=== PATIENT | male | born 1945 | race Two or more races ===

== ENCOUNTER 2022-03-24 18:15 | Inpatient (IN) | payer MEDICARE, OTHER ==
[~2022-03-24] VITALS: Ht 152.4 cm; Wt 37.6 kg
[2022-03-24] MEDS ORDERED: IV NS 0.9% 1,000 ML BAG IV ONE (18:30)
--- NOTE | 2022-03-24 18:45 | NUR ---
[id number] from home, c/o generalizded weakness and confusion x 2 days. On room air, breathing normally and unlabored. Connected to the monitor and pulse ox. Kept comfortable, rex continue to monitor accordingly.
--- NOTE | 2022-03-24 19:00 | NUR ---
urine collected and sent to lab.
--- NOTE | 2022-03-24 19:07 | NUR ---
covid swab collected and sent to lab.
[2022-03-24] MEDS ORDERED: AMLO-213 PO (19:18)
[2022-03-24] MEDS ORDERED: DONE5TAB7 PO (19:18)
[2022-03-24] MEDS ORDERED: BENA20TA9 PO (19:18)
[2022-03-24] MEDS ORDERED: ESCI5TAB PO (19:18)
[2022-03-24] MEDS ORDERED: DONE10TA44 PO (19:18)
[2022-03-24] MEDS ORDERED: FURO20TA4 PO (19:18)
[2022-03-24] MEDS ORDERED: DUTA0.5C37 PO (19:18)
[2022-03-24] MEDS ORDERED: TEMA15CA5 PO (19:30)
[2022-03-24] MEDS ORDERED: ASPI-1169 PO (19:30)
[2022-03-24] MEDS ORDERED: QUET25TA PO (19:30)
[2022-03-24] MEDS ORDERED: POTA10TA10 PO (19:30)
[2022-03-24] MEDS ORDERED: IBUP-1957 PO (19:30)
[2022-03-24] MEDS ORDERED: ROSU5TAB13 PO (19:30)
[2022-03-24] MEDS ORDERED: LORA-259 PO (19:30)
[2022-03-24] MEDS ORDERED: MECL-159 PO (19:30)
[2022-03-24 19:56] LABS: BASOPHILS # (AUTO) 0.1 K/uL (0.0-0.2); BASOPHILS % (AUTO) 0.8 % (0.0-2.0); EOSINOPHILS % (AUTO) 2.5 % (0.0-6.0); HEMATOCRIT 35 % (39-51); HEMOGLOBIN 12.1 g/dL (13.5-17.5); LYMPHOCYTES # (AUTO) 1.6 K/uL (0.8-4.8); LYMPHOCYTES % (AUTO) 23.6 % (20.0-44.0); MEAN CORPUSCULAR HGB CONC 34 g/dl (31.0-36.0); MEAN CORPUSCULAR VOLUME 89 fL (80-96); MONOCYTES # (AUTO) 0.6 K/uL (0.1-1.30); MONOCYTES % (AUTO) 9.2 % (2.0-12.0); NEUTROPHILS # (AUTO) 4.4 K/uL (1.8-8.9); NEUTROPHILS % (AUTO) 63.9 % (43.0-81.0); PLATELET COUNT (AUTO) 168 K/uL (150-450); RED BLOOD CELL COUNT(AUTO) 3.99 MIL/uL (4.5-6.0); WHITE BLOOD COUNT (AUTO) 6.9 K/uL (4.3-11.0)
[2022-03-24 19:57] LABS: CALCIUM, SERUM 8.2 mg/dL (8.5-10.1); CARBON DIOXIDE 26 mmol/L (21-32); CHLORIDE 107 mmol/L (98-107); CREATININE 0.9 mg/dL (0.6-1.3); GLUCOSE 141 mg/dL (74-106); SODIUM SERUM 141 mmol/L (136-145); UREA NITROGEN, BLOOD 19 mg/dL (7-18)
[2022-03-24 20:03] LABS: BILIRUBIN,URINE SMALL (NEGATIVE); COLOR,URINE YELLOW (YELLOW); LEUKOCYTE ESTERASE ,URINE NEGATIVE (NEGATIVE); NITRITE, URINE NEGATIVE (NEGATIVE); PROTEIN,URINE 30 mg/dl (NEGATIVE); UGLUCOSE NEGATIVE (NEGATIVE)
[2022-03-24 20:05] LABS: ALANINE AMINOTRANSFERASE 15 U/L (12-78); ALBUMIN 3.1 g/dL (3.4-5.0); ALKALINE PHOSPHATASE 65 U/L (46-116); ASPARTATE AMINOTRANSFERASE 13 U/L (15-37); BILIRUBIN,DIRECT 0.1 mg/dL (0.0-0.2); BILIRUBIN,TOTAL 0.2 mg/dL (0.2-1.0); TOTAL PROTEIN, SERUM 6.5 g/dL (6.4-8.2)
[2022-03-24 21:14] LABS: BACTERIA,URINE None seen /HPF (None Seen); MUCUS,URINE Many /LPF (None Seen); RBC,URINE 0-2 /HPF (0-2); SQUAMOUS EPITHELIAL CELL,UR 0-2 /HPF (None Seen); WBC,URINE 0-2 /HPF (0-3)
--- NOTE | 2022-03-24 21:58 | NUR ---
Report given to Katie FULTON to continue care.
[2022-03-24] MEDS ORDERED: IBUPROFEN 800 MG TABLET PO PRN (22:00)
[2022-03-24] MEDS ORDERED: ACETAMINOPHEN 325 MG TABLET PO PRN (22:00)
[2022-03-24] MEDS ORDERED: MORPHINE SULFATE INJ 2 MG/ML DISP.SYRIN IV PRN (22:00)
[2022-03-24] MEDS ORDERED: ONDANSETRON HCL/PF 4 MG/2 ML VIAL IVP PRN (22:00)
[2022-03-24 22:24] VITALS: BP 125/79
--- NOTE | 2022-03-24 22:24 | NUR ---
MS RN OPENING NOTE PT TRANSPORTED VIA GURNEY TO UNIT AT THIS TIME. PT ADMITTED TO [facility] FROM ER UNDER DR VEGA FOR ADMITTING DX AMS. A/O X0, CONFUSED, [place] SPEAKING. COMBATIVE WHEN TRYING TO ADMINISTER CARE. PT IS STABLE ON ROOM AIR, SATURATING 97%. NO SOB OR S/S OF RESPIRATORY DISTRESS NOTED. BREATHING EVEN AND UNLABORED. SKIN IS INTACT. IV ACCESS LAC 20G AND RFA 18G, INTACT AND PATENT. SAFETY PRECAUTIONS IN PLACE. BED IN LOWEST LOCKED POSITION, HOB ELEVATED, SIDE RAILS UP X3, AND CALL LIGHT AND TABLE WITHIN REACH. ALL NEEDS MET AT THIS TIME.
[2022-03-24 22:45] LABS: ABG PCO2 36.6 mmHg (35.0-45.0); ABG PH 7.387 (7.350-7.450); AaDO2 27.9 mmHg; COHb 0.3 % (0.5-1.5); MetHb 0.2 % (0.0-1.5); O2Hb 94.5 % (94.0-97.0); SITE, ABG Right Radial; VENT MODE, BG ROOM AIR
--- NOTE | 2022-03-24 22:53 | NUR ---
RT ABG done and results given to KIRSTIN Wilson.
--- NOTE | 2022-03-24 23:02 | NUR ---
RN NOTE PT COMBATIVE WITH CARE, PUNCHING, KICKING, AND TRYING TO GET OUT OF BED. PT IS CONFUSED AND UNABLE TO FOLLOW VERBAL COMMANDS. FOR PT AND STAFF SAFETY, DR VEGA INFORMED WITH NEW ORDER FOR BILATERAL SOFT WRIST RESTRAINTS. ORDER CARRIED OUT. ALL OTHER NEEDS MET AT THIS TIME.
[2022-03-24] MEDS: IV NS 0.9% 1,000 ML IV SCH (23:03)
[2022-03-24] MEDS: POTASSIUM CL. PREMIX PERIPHER. 50 ML IV SCH (23:06)
[2022-03-24] MEDS: ENOXAPARIN SODIUM 40 MG/0.4 ML DISP.SYRIN SQ SCH (23:07)
--- NOTE | 2022-03-24 23:48 | NUR ---
RN NOTE ABG RESULTS GIVEN TO DR VEGA, NO NEW ORDERS AT THIS TIME.
[2022-03-25] MEDS: POTASSIUM CL. PREMIX PERIPHER. 50 ML IV SCH (00:06)
[2022-03-25 00:44] VITALS: BP 147/84
[2022-03-25 01:26] LABS: ALCOHOL, BLOOD < 3 mg/dL (0-0)
[2022-03-25 04:37] VITALS: BP 136/71
[2022-03-25 06:34] LABS: BASOPHILS % (AUTO) 0.7 % (0.0-2.0); EOSINOPHILS % (AUTO) 4.1 % (0.0-6.0); HEMATOCRIT 39 % (39-51); HEMOGLOBIN 13.2 g/dL (13.5-17.5); LYMPHOCYTES # (AUTO) 1.2 K/uL (0.8-4.8); LYMPHOCYTES % (AUTO) 25.6 % (20.0-44.0); MEAN CORPUSCULAR HGB CONC 34 g/dl (31.0-36.0); MEAN CORPUSCULAR VOLUME 90 fL (80-96); MONOCYTES # (AUTO) 0.6 K/uL (0.1-1.30); MONOCYTES % (AUTO) 11.4 % (2.0-12.0); NEUTROPHILS # (AUTO) 2.8 K/uL (1.8-8.9); NEUTROPHILS % (AUTO) 58.2 % (43.0-81.0); PLATELET COUNT (AUTO) 141 K/uL (150-450); RED BLOOD CELL COUNT(AUTO) 4.36 MIL/uL (4.5-6.0); WHITE BLOOD COUNT (AUTO) 4.8 K/uL (4.3-11.0)
--- NOTE | 2022-03-25 06:35 | NUR ---
MS RN CLOSING NOTE PT AWAKE IN BED. A/O X1, CONFUSED, BAHAMIAN SPEAKING. PT IS STABLE ON ROOM AIR, SATURATING 97%. NO SOB OR S/S OF RESPIRATORY DISTRESS NOTED. BREATHING EVEN AND UNLABORED. IV ACCESS LAC 20G AND RFA 18G, INTACT AND PATENT. ALL DUE MEDS GIVEN ORDERED. TURNED AND REPOSITIONED Q2H. KEPT CLEAN AND DRY. SAFETY PRECAUTIONS IN PLACE AT ALL TIMES. BED IN LOWEST LOCKED POSITION, HOB ELEVATED, SIDE RAILS UP X3, AND CALL LIGHT AND TABLE WITHIN REACH. ALL NEEDS MET AT THIS TIME AND WILL ENDORSE TO ONCOMING NURSE FOR SUDHA.
[2022-03-25] MEDS ORDERED: IBUPROFEN 400 MG TABLET PO PRN (07:00)
[2022-03-25 07:08] LABS: ALANINE AMINOTRANSFERASE 13 U/L (12-78); ALBUMIN 2.9 g/dL (3.4-5.0); ALKALINE PHOSPHATASE 68 U/L (46-116); ASPARTATE AMINOTRANSFERASE 15 U/L (15-37); BILIRUBIN,TOTAL 0.4 mg/dL (0.2-1.0); CARBON DIOXIDE 23 mmol/L (21-32); CHLORIDE 109 mmol/L (98-107); CREATININE 0.6 mg/dL (0.6-1.3); GLUCOSE 97 mg/dL (74-106); MAGNESIUM 1.9 mg/dL (1.8-2.4); PHOSPHORUS 2.3 mg/dL (2.5-4.9); POTASSIUM 3.2 mmol/L (3.5-5.1); SODIUM SERUM 141 mmol/L (136-145); TOTAL PROTEIN, SERUM 6.4 g/dL (6.4-8.2); UREA NITROGEN, BLOOD 9 mg/dL (7-18)
--- NOTE | 2022-03-25 07:45 | NUR ---
MS RN OPENING NOTE RECEIVED PT SLEEPING IN BED. A/O X1, CONFUSED, ROMANIAN SPEAKING. TRYING TO GET OUT OF BED, PATIENT HAS SOFT BILATERAL WRIST RESTRAINTS, HANDS ARE PERFUSING WELL. PT IS STABLE ON ROOM AIR, SATURATING 96%. NO SOB OR S/S OF RESPIRATORY DISTRESS NOTED. BREATHING EVEN AND UNLABORED. IV ACCESS LAC 18G AND RFA 18G WITH NS @75 ML/HR, INTACT AND PATENT. SAFETY PRECAUTIONS IN PLACE AT ALL TIMES. BED IN LOWEST LOCKED POSITION, HOB ELEVATED, SIDE RAILS UP X3, AND CALL LIGHT AND TABLE WITHIN REACH. WILL CONTINUE TO MONITOR DURING MY SHIFT.
[2022-03-25 08:00] VITALS: BP 134/70
[2022-03-25] MEDS: DUTASTERIDE (0.5 MG) 0.5 MG CAPSULE PO SCH (09:46)
[2022-03-25] MEDS: FUROSEMIDE 20 MG TABLET PO SCH (09:47)
[2022-03-25] MEDS: DONEPEZIL 5 MG TABLET PO SCH (09:48)
[2022-03-25] MEDS: ESCITALOPRAM OXALATE (10 MG) 10 MG TABLET PO SCH (09:49)
[2022-03-25] MEDS: ASPIRIN 81 MG TAB.CHEW PO SCH (09:49)
[2022-03-25] MEDS: ATORVASTATIN 10 MG TABLET PO SCH (09:49)
[2022-03-25] MEDS: BENAZEPRIL HCL 20 MG TABLET PO SCH (09:50)
[2022-03-25] MEDS: AMLODIPINE BESYLATE 10 MG TABLET PO SCH (09:50)
[2022-03-25] MEDS: QUETIAPINE FUMARATE 25 MG TABLET PO SCH ×2 (09:51→17:12)
[2022-03-25] MEDS: POTASSIUM CHLORIDE 10 MEQ TABLET.SA PO SCH (09:51)
[2022-03-25] MEDS ORDERED: POTASSIUM CHLORIDE 20 MEQ TAB.PRT.SR PO SCH (10:00)
[2022-03-25] MEDS ORDERED: K PHOS NEUTRAL 250 MG TABLET PO ONE (10:00)
--- NOTE | 2022-03-25 11:00 | NUR ---
RN NOTES PATIENT MANAGED TO GET HIS LEFT HAND OFF RESTRAINT. PLACED HIM BACK GENTLY, NO INJURY NOTED.
--- NOTE | 2022-03-25 11:07 | NUR ---
RN NOTES RECEIVED A CALL FROM NICOLAS CHRISTOPHER, ASKING FOR AN UPDATE REGARDING HER DAD, INFORMED THAT WE PLACED HIM ON RESTRAINTS. SHE INFORMED THAT THEY ARE UNABLE TO TAKE CARE OF THE DAD AT HOME AND WANTS PLACEMENT.WILL ENDORSE TO THE CM.
[2022-03-25] MEDS: IV NS 0.9% 1,000 ML IV SCH (12:36)
[2022-03-25] MEDS: ENSURE ENLIVE 237 ML LIQUID (VANILLA) PO SCH ×2 (12:38→17:12)
--- NOTE | 2022-03-25 15:30 | NUR ---
RN NOTES KAYLEEN VILLARREAL IS WITH PATIENT'S DAUGHTER AND TO DISCUSS SNF PLACEMENT.
[2022-03-25 16:00] VITALS: BP 106/53
--- NOTE | 2022-03-25 17:15 | NUR ---
RN NOTES DVT PUMP APPLIED
--- NOTE | 2022-03-25 18:52 | NUR ---
MS RN CLOSING NOTE PT SLEEPING IN BED. A/O X1, CONFUSED BUT ISN'T COMBATIVE. PATIENT STILL HAS SOFT BILATERAL WRIST RESTRAINTS, KEPT VISUAL CHECKS AND RELEASED EVERY 2 HOURS, HANDS ARE PERFUSING WELL NO INJURIES NOTED. PT IS STILL STABLE ON ROOM AIR, SATURATING 98%. NO SOB OR S/S OF RESPIRATORY DISTRESS NOTED. BREATHING EVEN AND UNLABORED. IV ACCESS LAC 18G AND RFA 18G WITH NS @75 ML/HR, INTACT AND PATENT. SAFETY PRECAUTIONS KEPT AT ALL TIMES. BED IN LOWEST LOCKED POSITION, HOB ELEVATED, SIDE RAILS UP X3, AND CALL LIGHT AND TABLE WITHIN REACH. WILL ENDORSE TO THE ONCOMING NIGHT NURSE.
[2022-03-25 20:43] VITALS: BP 128/59
[2022-03-25] MEDS: ENOXAPARIN SODIUM 40 MG/0.4 ML DISP.SYRIN SQ SCH (22:21)
--- NOTE | 2022-03-25 22:23 | NUR ---
ANTICOAGULANT H/H 13.2 Plt 141 low. No active bleeding. Notified Dr. Morelos. Given Lovenox injection with orders, co signed by KIRSTIN Alas.
--- NOTE | 2022-03-26 00:24 | NUR ---
RESTRAINTS RELEASED Robin soft wrist restraints released, CSM intact in robin arm. Patient calm, no agitated behavior. Will cont to monitor behavior.
[2022-03-26] MEDS: IV NS 0.9% 1,000 ML IV SCH ×2 (01:58→14:26)
--- NOTE | 2022-03-26 07:00 | NUR ---
END OF SHIFT REPORT Patient in bed, awake, Alert to self only. No acute distress during the night, on room air. IVF infusing. No episode of agitation, calm, not pulling IV peripheral line. Robin soft wrist restraints discontinued at 0030. Patient episode of trying to get up unassisted this morning, sitter at bedside. Fall precaution maintained. Care endorsed to KIRSTIN Jaramillo.
--- NOTE | 2022-03-26 07:05 | NUR ---
MS RN OPENING NOTES RECEIVED PATIENT AWAKE IN BED, RESTING ON ROOM AIR, NO S/S OF RESPIRATORY DISTRESS. A/Ox1, RESPONDS TO VERBAL AND TACTILE STIMULI. IV ACCESS R FA #18 WITH NS RUNNING 75 ML/HR AND L AC #18 SL. INTACT AND PATENT, NO S/S OF INFILTRATION. SITTER AT BEDSIDE. INCONTINENT. SAFETY MEASURES IN PLACE: BED LOCKED AND IN LOWEST POSITION, SIDE RAILS UP x3, BED ALARM ON, HOB ELEVATED, AND CALL LIGHT WITHIN REACH. WILL CONTINUE TO MONITOR.
[2022-03-26 07:13] LABS: BASOPHILS % (AUTO) 0.7 % (0.0-2.0); EOSINOPHILS % (AUTO) 4.3 % (0.0-6.0); HEMATOCRIT 40 % (39-51); HEMOGLOBIN 13.2 g/dL (13.5-17.5); LYMPHOCYTES # (AUTO) 1.6 K/uL (0.8-4.8); LYMPHOCYTES % (AUTO) 29.3 % (20.0-44.0); MEAN CORPUSCULAR HGB CONC 33 g/dl (31.0-36.0); MEAN CORPUSCULAR VOLUME 90 fL (80-96); MONOCYTES # (AUTO) 0.6 K/uL (0.1-1.30); MONOCYTES % (AUTO) 10.6 % (2.0-12.0); NEUTROPHILS # (AUTO) 2.9 K/uL (1.8-8.9); NEUTROPHILS % (AUTO) 55.1 % (43.0-81.0); PLATELET COUNT (AUTO) 155 K/uL (150-450); RED BLOOD CELL COUNT(AUTO) 4.41 MIL/uL (4.5-6.0); WHITE BLOOD COUNT (AUTO) 5.4 K/uL (4.3-11.0)
[2022-03-26 07:16] LABS: CALCIUM, SERUM 8.6 mg/dL (8.5-10.1); CARBON DIOXIDE 24 mmol/L (21-32); CHLORIDE 107 mmol/L (98-107); CREATININE 0.6 mg/dL (0.6-1.3); GLUCOSE 92 mg/dL (74-106); PHOSPHORUS 2.9 mg/dL (2.5-4.9); POTASSIUM 3.2 mmol/L (3.5-5.1); SODIUM SERUM 140 mmol/L (136-145); UREA NITROGEN, BLOOD 6 mg/dL (7-18)
[2022-03-26 08:00] VITALS: BP 131/67
[2022-03-26] MEDS: DONEPEZIL 5 MG TABLET PO SCH (09:28)
[2022-03-26] MEDS: ATORVASTATIN 10 MG TABLET PO SCH (09:28)
[2022-03-26] MEDS: FUROSEMIDE 20 MG TABLET PO SCH (09:28)
[2022-03-26] MEDS: BENAZEPRIL HCL 20 MG TABLET PO SCH (09:29)
[2022-03-26] MEDS: ESCITALOPRAM OXALATE (10 MG) 10 MG TABLET PO SCH (09:29)
[2022-03-26] MEDS: QUETIAPINE FUMARATE 25 MG TABLET PO SCH ×2 (09:31→16:12)
[2022-03-26] MEDS: DUTASTERIDE (0.5 MG) 0.5 MG CAPSULE PO SCH (09:31)
[2022-03-26] MEDS: POTASSIUM CHLORIDE 10 MEQ TABLET.SA PO SCH (09:31)
[2022-03-26] MEDS: AMLODIPINE BESYLATE 10 MG TABLET PO SCH (09:31)
[2022-03-26] MEDS: ASPIRIN 81 MG TAB.CHEW PO SCH (09:31)
[2022-03-26] MEDS: ENSURE ENLIVE 237 ML LIQUID (VANILLA) PO SCH ×3 (09:41→17:24)
[2022-03-26] MEDS: POTASSIUM CHLORIDE 20 MEQ TAB.PRT.SR PO SCH ×2 (12:26→13:41)
[2022-03-26] MEDS: LORAZEPAM 1 MG TABLET PO PRN ×2 (12:47→21:30)
--- NOTE | 2022-03-26 13:50 | NUR ---
RN NOTES PATIENT HAD EPISODES OF RESTLESSNESS AND WAS ATTEMPTING TO GET UP FROM BED. PRN ATIVAN ADMINISTERED, PATIENT IS NOW RESTING IN BED.
[2022-03-26 16:00] VITALS: BP 129/78
--- NOTE | 2022-03-26 18:35 | NUR ---
MS RN CLOSING NOTES PATIENT AWAKE IN BED, RESTING STABLE ON ROOM AIR, NO S/S OF RESPIRATORY DISTRESS. A/Ox1, RESPONDS TO VERBAL AND TACTILE STIMULI. IV ACCESS R FA #18 WITH NS RUNNING 75 ML/HR AND L AC #18 SL. INTACT AND PATENT, NO S/S OF INFILTRATION. SITTER AT BEDSIDE. INCONTINENT. ALL PRESCRIBED MEDICATION ADMINISTERED. SAFETY MEASURES MAINTAINED: BED LOCKED AND IN LOWEST POSITION, SIDE RAILS UP x3, BED ALARM ON, HOB ELEVATED, AND CALL LIGHT WITHIN REACH. WILL ENDORSE TO NEXT SHIFT ANY SUDHA.
[2022-03-26 20:30] VITALS: BP 115/74
--- NOTE | 2022-03-26 21:38 | NUR ---
RESTLESS Patient trying to get up from bed unassisted, confused and restless. PO Ativan given, fall precaution maintained. Sitter at bedside.
[2022-03-26] MEDS: ENOXAPARIN SODIUM 40 MG/0.4 ML DISP.SYRIN SQ SCH (21:40)
[2022-03-27] MEDS: IV NS 0.9% 1,000 ML IV SCH ×2 (02:59→16:40)
[2022-03-27] MEDS: LORAZEPAM 1 MG TABLET PO PRN (05:54)
--- NOTE | 2022-03-27 06:22 | NUR ---
END OF SHIFT REPORT Patient in bed, awake. Alert to self only. No acute distress during the shift, stable on room air. IVF infusing. Turned and repositioned. Calm down after Ativan. Sitter at bedside. Fall precaution maintained. Will endorse to oncoming RN.
--- NOTE | 2022-03-27 07:05 | NUR ---
MS RN OPENING NOTES RECEIVED PATIENT AWAKE IN BED, RESTING ON ROOM AIR, NO S/S OF RESPIRATORY DISTRESS. A/Ox1, RESPONDS TO VERBAL AND TACTILE STIMULI. IV ACCESS R FA #18 WITH NS RUNNING 75 ML/HR AND L AC #18 SL. INTACT AND PATENT, NO S/S OF INFILTRATION. SITTER AT BEDSIDE. INCONTINENT. SKIN INTACT. SAFETY MEASURES IN PLACE: BED LOCKED AND IN LOWEST POSITION, SIDE RAILS UP x3, BED ALARM ON, HOB ELEVATED, AND CALL LIGHT WITHIN REACH. WILL CONTINUE TO MONITOR.
[2022-03-27 07:19] LABS: CALCIUM, SERUM 8.8 mg/dL (8.5-10.1); CREATININE 0.8 mg/dL (0.6-1.3); POTASSIUM 3.7 mmol/L (3.5-5.1)
[2022-03-27 08:00] VITALS: BP 134/76
[2022-03-27] MEDS: FUROSEMIDE 20 MG TABLET PO SCH (08:40)
[2022-03-27] MEDS: ESCITALOPRAM OXALATE (10 MG) 10 MG TABLET PO SCH (08:42)
[2022-03-27] MEDS: QUETIAPINE FUMARATE 25 MG TABLET PO SCH ×2 (08:42→17:00)
[2022-03-27] MEDS: DUTASTERIDE (0.5 MG) 0.5 MG CAPSULE PO SCH (08:42)
[2022-03-27] MEDS: BENAZEPRIL HCL 20 MG TABLET PO SCH (08:42)
[2022-03-27] MEDS: ASPIRIN 81 MG TAB.CHEW PO SCH (08:42)
[2022-03-27 08:43] VITALS: BP 134/76
[2022-03-27] MEDS: DONEPEZIL 5 MG TABLET PO SCH (08:43)
[2022-03-27] MEDS: ATORVASTATIN 10 MG TABLET PO SCH (08:43)
[2022-03-27] MEDS: AMLODIPINE BESYLATE 10 MG TABLET PO SCH (08:43)
[2022-03-27] MEDS: POTASSIUM CHLORIDE 10 MEQ TABLET.SA PO SCH (08:44)
[2022-03-27] MEDS: ENSURE ENLIVE 237 ML LIQUID (VANILLA) PO SCH ×3 (08:44→17:00)
[2022-03-27] MEDS ORDERED: LACT-246 PO (11:53)
--- NOTE | 2022-03-27 17:30 | NUR ---
RN NOTES PATIENT REMOVED IV LINE, IS NOT ALLOWING STAFF TO REINSERT, WILL CONTINUE TO MONITOR.
--- NOTE | 2022-03-27 19:21 | NUR ---
[facility] RN CLOSING NOTES PATIENT PENDING DISCHARGE TO [facility], REPORT GIVEN TO KAREN. ENDORSED TO NEXT SHIFT TO CALL WHEN PATIENT IS PICKED UP. ALL PAPERWORK DONE AND JUST AWAITING TRANSPORT FOR PATIENT.
--- NOTE | 2022-03-27 19:30 | NUR ---
RN NOTE RECEIVED REPORT FROM KIRSTIN TUCKER FOR SUDHA. PT FOR DC TO [facility], AWAITING TRANSPORT.
--- NOTE | 2022-03-27 19:45 | NUR ---
RN NOTE PT PICKED UP BY TRANSPORT, TO BE TRANSFERRED TO [facility].
== END 2022-03-27 20:00 | DRG 641 ==
LOC: ER 18:18 → TELE 21:48 → MED 03-25 00:40
PROVIDERS: ADMIT Internal Medicine; ATTEND Nurse Practitioner Acute Care
DX: R62.7 Adult failure to thrive (principal); G93.40 Encephalopathy, unspecified; E44.1 Mild protein-calorie malnutrition; E87.6 Hypokalemia; E88.09 Other disorders of plasma-protein metabolism, not elsewhere classified; Z20.822 Contact with and (suspected) exposure to COVID-19; I10 Essential (primary) hypertension; F03.90 Unspecified dementia, unspecified severity, without behavioral disturbance, psychotic disturbance, mood disturbance, and anxiety; Z79.01 Long term (current) use of anticoagulants; Z79.899 Other long term (current) drug therapy; D64.9 Anemia, unspecified; E78.5 Hyperlipidemia, unspecified; F32.A Depression, unspecified; G47.00 Insomnia, unspecified; R29.6 Repeated falls
CPT/HCPCS: 36415; 36600; 70450-TC; 71045-TC; 80048-TC; 80053-TC; 80076-TC; 81001; 82010-TC; 82140-TC; 82550-TC; 82803-TC; 83605-TC; 83735-TC; 84100-TC; 84484-TC; 85025-TC; 85730-TC; 87040-TC; 87081-TC; 87086-TC; 97112-TC; 97116-TC; 97530-TC; C9803; G0378; G0480; J1650; J3480; J7030; J7042

== ENCOUNTER 2023-02-08 11:45 | Inpatient (IN) | payer MEDICARE, OTHER ==
[~2023-02-08] VITALS: Ht 162.6 cm; Wt 45.4 kg
[~2023-02-08 11:45] MED LIST: ACET-868 PO; AMIN30LI2 PO; AMLO-213 PO; ASPI-1169 PO; ATOR20TA PO; BENA20TA9 PO; BISA10SU11 RC; CRAN425C6 PO; DOCU-141 PO; DONE10TA44 PO; ESCI5TAB PO; FINA5TAB11 PO; IBUP-1957 PO; LORA-259 PO; MAGN400O6 PO; MEGE40TA7 PO; NA P133E RC; POTA10TA10 PO; QUET25TA PO; TEMA15CA5 PO
[2023-02-08 12:20] LABS: BASOPHILS % (AUTO) 0.6 % (0.0-2.0); EOSINOPHILS # (AUTO) 0.9 K/uL (0.0-0.7); EOSINOPHILS % (AUTO) 13.5 % (0.0-6.0); HEMATOCRIT 32 % (39-51); HEMOGLOBIN 10.7 g/dL (13.5-17.5); LYMPHOCYTES # (AUTO) 0.6 K/uL (0.8-4.8); LYMPHOCYTES % (AUTO) 9.2 % (20.0-44.0); MEAN CORPUSCULAR HEMOGLOBIN 31 PG (26.0-33.0); MEAN CORPUSCULAR HGB CONC 33 g/dl (31.0-36.0); MEAN CORPUSCULAR VOLUME 93 fL (80-96); MONOCYTES # (AUTO) 0.5 K/uL (0.1-1.30); MONOCYTES % (AUTO) 7.8 % (2.0-12.0); NEUTROPHILS # (AUTO) 4.6 K/uL (1.8-8.9); NEUTROPHILS % (AUTO) 68.9 % (43.0-81.0); PLATELET COUNT (AUTO) 143 K/uL (150-450); RED BLOOD CELL COUNT(AUTO) 3.46 MIL/uL (4.5-6.0); RED CELL DISTRIBUTION WIDTH 15.1 % (11.5-15.0); WHITE BLOOD COUNT (AUTO) 6.7 K/uL (4.3-11.0)
[2023-02-08 12:27] LABS: CALCIUM, SERUM 8.7 mg/dL (8.5-10.1); CARBON DIOXIDE 18 mmol/L (21-32); CHLORIDE 108 mmol/L (98-107); CREATININE 0.8 mg/dL (0.6-1.3); GLUCOSE 112 mg/dL (74-106); SODIUM SERUM 141 mmol/L (136-145); UREA NITROGEN, BLOOD 20 mg/dL (7-18)
[2023-02-08 12:40] LABS: ALANINE AMINOTRANSFERASE 17 U/L (12-78); ALBUMIN 2.6 g/dL (3.4-5.0); ALKALINE PHOSPHATASE 113 U/L (46-116); ASPARTATE AMINOTRANSFERASE 14 U/L (15-37); BILIRUBIN,DIRECT 0.2 mg/dL (0.0-0.2); BILIRUBIN,TOTAL 0.5 mg/dL (0.2-1.0); NT-PRO BNP 654 pg/mL (0-125); TOTAL PROTEIN, SERUM 7.7 g/dL (6.4-8.2)
[2023-02-08 12:49] LABS: INR 1.1 (0.91-1.10); PARTIAL THROMBOPLASTIN TIME 26.4 SEC (24.3-34.3); PROTHROMBIN TIME 11.5 SECS (9.2-11.1)
[2023-02-08] MEDS ORDERED: CEFTRIAXONE 1GM BAG (ER ONLY) 50 ML IV ONE ×2 (13:30→13:55)
[2023-02-08] MEDS ORDERED: AZITHROMYCIN 500 MG in IV D5W 250 ML IV ONE (13:30)
[2023-02-08] MEDS ORDERED: MECL-159 PO (13:37)
[2023-02-08] MEDS ORDERED: PETR113O TP (13:37)
[2023-02-08] MEDS ORDERED: MAG HYDROX/AL HYDROX/SIMETH 30 ML UDC PO PRN (15:00)
[2023-02-08] MEDS ORDERED: ONDANSETRON HCL/PF 4 MG/2 ML VIAL IVP PRN (15:00)
[2023-02-08] MEDS ORDERED: IPRATROPIUM NEB FS 0.5 MG/2.5 ML AMPUL.NEB NEB PRN (15:00)
[2023-02-08] MEDS ORDERED: MAGNESIUM HYDROXIDE 30 ML UDC PO PRN (15:00)
[2023-02-08] MEDS ORDERED: ALBUTEROL FS 2.5 MG/0.5 ML VIAL.NEB NEB PRN (15:00)
[2023-02-08] MEDS ORDERED: ACETAMINOPHEN 325 MG TABLET PO PRN (15:00)
[2023-02-08] MEDS ORDERED: Z GUARD REMEDY 4 OZ OINT TP PRN (15:00)
[2023-02-08] MEDS ORDERED: HYDROCODONE/APAP 5/325MG TABLET PO PRN (15:00)
[2023-02-08] MEDS: IV NS 0.9% 1,000 ML IV PRN (16:02)
[2023-02-08 18:47] VITALS: BP 98/50; TEMP 98.3
[2023-02-08] MEDS: ZOSYN IVPB 3.375 G in IV D5W 50ml IV SCH ×2 (19:16→23:51)
[2023-02-08 20:00] VITALS: BP 97/49; TEMP 98.5; O2SAT 92
[2023-02-08] MEDS: VANCOMYCIN 0.75 GM in IV D5W 250 ML IV SCH (20:28)
[2023-02-08] MEDS: ENOXAPARIN SODIUM 40 MG/0.4 ML DISP.SYRIN SQ SCH (20:46)
[2023-02-09] VITALS (8 sets, daily range): BP systolic 99–110; BP diastolic 38–63; TEMP 98.1–99.4; O2SAT 92–100
[2023-02-09] MEDS: ZOSYN IVPB 3.375 G in IV D5W 50ml IV SCH ×3 (05:18→18:31)
[2023-02-09] MEDS: IV NS 0.9% 1,000 ML IV PRN (05:21)
[2023-02-09 06:23] LABS: BASOPHILS % (AUTO) 0.5 % (0.0-2.0); EOSINOPHILS # (AUTO) 1.4 K/uL (0.0-0.7); EOSINOPHILS % (AUTO) 22.6 % (0.0-6.0); HEMATOCRIT 28 % (39-51); HEMOGLOBIN 9.2 g/dL (13.5-17.5); LYMPHOCYTES # (AUTO) 0.8 K/uL (0.8-4.8); LYMPHOCYTES % (AUTO) 12.1 % (20.0-44.0); MEAN CORPUSCULAR HEMOGLOBIN 31 PG (26.0-33.0); MEAN CORPUSCULAR HGB CONC 33 g/dl (31.0-36.0); MEAN CORPUSCULAR VOLUME 94 fL (80-96); MONOCYTES # (AUTO) 0.4 K/uL (0.1-1.30); MONOCYTES % (AUTO) 5.9 % (2.0-12.0); NEUTROPHILS # (AUTO) 3.8 K/uL (1.8-8.9); NEUTROPHILS % (AUTO) 58.9 % (43.0-81.0); PLATELET COUNT (AUTO) 123 K/uL (150-450); RED BLOOD CELL COUNT(AUTO) 2.96 MIL/uL (4.5-6.0); WHITE BLOOD COUNT (AUTO) 6.4 K/uL (4.3-11.0)
[2023-02-09 06:47] LABS: CALCIUM, SERUM 8.4 mg/dL (8.5-10.1); CREATININE 0.8 mg/dL (0.6-1.3); MAGNESIUM 2.1 mg/dL (1.8-2.4); PHOSPHORUS 3.8 mg/dL (2.5-4.9); POTASSIUM 3.3 mmol/L (3.5-5.1)
[2023-02-09] MEDS: PANTOPRAZOLE 40 MG TABLET.DR PO SCH (07:30)
[2023-02-09] MEDS: VANCOMYCIN 0.75 GM in IV D5W 250 ML IV SCH ×2 (08:36→21:29)
[2023-02-09] MEDS ORDERED: POTASSIUM CHLORIDE 20 MEQ TAB.PRT.SR PO ONE ×2 (15:30→16:30)
[2023-02-09] MEDS: ENOXAPARIN SODIUM 40 MG/0.4 ML DISP.SYRIN SQ SCH (21:31)
[2023-02-10] VITALS: BP 108/62; TEMP 98.3; O2SAT 100
[2023-02-10] MEDS: ZOSYN IVPB 3.375 G in IV D5W 50ml IV SCH ×2 (00:19→05:32)
[2023-02-10] MEDS: IV NS 0.9% 1,000 ML IV PRN ×2 (00:19→17:35)
[2023-02-10 04:00] VITALS: BP 104/63; TEMP 98.4; O2SAT 99
[2023-02-10 06:43] LABS: BASOPHILS % (AUTO) 0.7 % (0.0-2.0); EOSINOPHILS # (AUTO) 1.5 K/uL (0.0-0.7); HEMATOCRIT 25 % (39-51); HEMOGLOBIN 8.5 g/dL (13.5-17.5); LYMPHOCYTES # (AUTO) 1.2 K/uL (0.8-4.8); LYMPHOCYTES % (AUTO) 20.9 % (20.0-44.0); MEAN CORPUSCULAR HEMOGLOBIN 33 PG (26.0-33.0); MEAN CORPUSCULAR HGB CONC 34 g/dl (31.0-36.0); MEAN CORPUSCULAR VOLUME 97 fL (80-96); MONOCYTES # (AUTO) 0.4 K/uL (0.1-1.30); MONOCYTES % (AUTO) 7.2 % (2.0-12.0); NEUTROPHILS # (AUTO) 2.6 K/uL (1.8-8.9); NEUTROPHILS % (AUTO) 45.9 % (43.0-81.0); PLATELET COUNT (AUTO) 135 K/uL (150-450); RED BLOOD CELL COUNT(AUTO) 2.57 MIL/uL (4.5-6.0); RED CELL DISTRIBUTION WIDTH 15.3 % (11.5-15.0); WHITE BLOOD COUNT (AUTO) 5.7 K/uL (4.3-11.0)
[2023-02-10 07:02] LABS: EOSINOPHILS % (AUTO) 25.3 % (0.0-6.0)
[2023-02-10 07:10] LABS: ALANINE AMINOTRANSFERASE 12 U/L (12-78); ALKALINE PHOSPHATASE 76 U/L (46-116); ASPARTATE AMINOTRANSFERASE 10 U/L (15-37); BILIRUBIN,TOTAL 0.7 mg/dL (0.2-1.0); CALCIUM, SERUM 8.1 mg/dL (8.5-10.1); CARBON DIOXIDE 16 mmol/L (21-32); CHLORIDE 111 mmol/L (98-107); CREATININE 0.5 mg/dL (0.6-1.3); GLUCOSE 97 mg/dL (74-106); PHOSPHORUS 1.9 mg/dL (2.5-4.9); POTASSIUM 3.9 mmol/L (3.5-5.1); SODIUM SERUM 138 mmol/L (136-145); TOTAL PROTEIN, SERUM 6.6 g/dL (6.4-8.2); UREA NITROGEN, BLOOD 14 mg/dL (7-18)
[2023-02-10 08:00] VITALS: BP 120/70; TEMP 98.2; O2SAT 95
[2023-02-10] MEDS: VANCOMYCIN 0.75 GM in IV D5W 250 ML IV SCH ×2 (08:34→20:03)
[2023-02-10] MEDS: PANTOPRAZOLE 40 MG TABLET.DR PO SCH (08:34)
[2023-02-10] MEDS: PROSOURCE / PROSTAT (PYXIS) 30 ML UDC PO SCH ×3 (08:36→17:00)
[2023-02-10] MEDS: ENSURE ENLIVE 237 ML LIQUID (VANILLA) PO SCH ×3 (08:36→17:00)
[2023-02-10] MEDS ORDERED: NEUTRA PHOS 1 POWD.PACKET PO ONE (09:30)
[2023-02-10 12:00] VITALS: BP 112/59; TEMP 98.5; O2SAT 96
[2023-02-10 12:03] LABS: ANISOCYTOSIS 1+; BASOPHILS % (MANUAL) 0 % (0.0-2.0); EOSINOPHILS % (MANUAL) 22 % (0-4); LYMPHOCYTES % (MANUAL) 18 % (16-48); MONOCYTES % (MANUAL) 9 % (0-11.0); NEUTROPHILS % (MANUAL) 51 (42-76); PLATELET ESTIMATE ADEQUATE
[2023-02-10] MEDS: PIPERACILLIN /TAZOBACTAM 3.375 G in IV D5W 100 ML IV SCH ×2 (12:13→21:10)
[2023-02-10 16:00] VITALS: BP 125/60; TEMP 98.5; O2SAT 96
[2023-02-10 20:00] VITALS: BP 127/69; TEMP 99; O2SAT 97
[2023-02-10] MEDS: ENOXAPARIN SODIUM 40 MG/0.4 ML DISP.SYRIN SQ SCH (21:11)
[2023-02-11] VITALS (7 sets, daily range): BP systolic 112–157; BP diastolic 52–73; TEMP 97.5–99; O2SAT 98–99
[2023-02-11] MEDS: PIPERACILLIN /TAZOBACTAM 3.375 G in IV D5W 100 ML IV SCH ×3 (04:52→21:43)
[2023-02-11 06:36] LABS: CALCIUM, SERUM 8.1 mg/dL (8.5-10.1); CREATININE 0.6 mg/dL (0.6-1.3); POTASSIUM 3.3 mmol/L (3.5-5.1)
[2023-02-11] MEDS: VANCOMYCIN 0.75 GM in IV D5W 250 ML IV SCH ×2 (08:22→20:21)
[2023-02-11] MEDS: ENSURE ENLIVE 237 ML LIQUID (VANILLA) PO SCH ×3 (08:22→16:30)
[2023-02-11] MEDS: PANTOPRAZOLE 40 MG TABLET.DR PO SCH (08:22)
[2023-02-11] MEDS: PROSOURCE / PROSTAT (PYXIS) 30 ML UDC PO SCH ×3 (08:23→16:30)
[2023-02-11] MEDS ORDERED: POTASSIUM CHLORIDE 20 MEQ POWDER PACKET PO SCH (11:00)
[2023-02-11] MEDS: IV NS 0.9% 1,000 ML IV PRN (13:37)
[2023-02-11] MEDS: ENOXAPARIN SODIUM 40 MG/0.4 ML DISP.SYRIN SQ SCH (21:44)
[2023-02-12] VITALS: BP 111/52; TEMP 98.2; O2SAT 98
[2023-02-12 04:00] VITALS: BP 123/73; TEMP 98.5; O2SAT 98
[2023-02-12] MEDS: PIPERACILLIN /TAZOBACTAM 3.375 G in IV D5W 100 ML IV SCH ×2 (05:26→12:21)
[2023-02-12] MEDS: IV NS 0.9% 1,000 ML IV PRN (06:54)
[2023-02-12 07:17] LABS: CALCIUM, SERUM 8.4 mg/dL (8.5-10.1); CREATININE 0.7 mg/dL (0.6-1.3); POTASSIUM 3.4 mmol/L (3.5-5.1)
[2023-02-12] MEDS: ENSURE ENLIVE 237 ML LIQUID (VANILLA) PO SCH ×2 (07:49→12:20)
[2023-02-12] MEDS: VANCOMYCIN 0.75 GM in IV D5W 250 ML IV SCH (07:49)
[2023-02-12] MEDS: PANTOPRAZOLE 40 MG TABLET.DR PO SCH (07:49)
[2023-02-12] MEDS: PROSOURCE / PROSTAT (PYXIS) 30 ML UDC PO SCH ×2 (07:50→12:20)
[2023-02-12 08:00] VITALS: BP 118/61; TEMP 97.9; O2SAT 98
[2023-02-12] MEDS ORDERED: POTASSIUM CHLORIDE 20 MEQ POWDER PACKET PO ONE (09:00)
[2023-02-12] MEDS ORDERED: LORAZEPAM 1 MG TABLET PO PRN (10:00)
[2023-02-12 12:00] VITALS: BP 137/76; TEMP 98; O2SAT 98
[2023-02-12] MEDS ORDERED: VANCOMYCIN HCL 0.75 GM in IV D5W 250 ML IV SCH (16:00)
[2023-02-12] MEDS ORDERED: PROSOURCE / PROSTAT (PYXIS) 30 ML UDC PO SCH (17:00)
[2023-02-12] MEDS ORDERED: QUETIAPINE FUMARATE 25 MG TABLET PO SCH (17:00)
[2023-02-12] MEDS ORDERED: MEGESTROL ACETATE 40 MG TABLET PO SCH (17:00)
[2023-02-12] MEDS ORDERED: ASPIRIN 81 MG TAB.CHEW PO SCH (18:00)
[2023-02-12] MEDS ORDERED: ATORVASTATIN 10 MG TABLET PO SCH (22:00)
[2023-02-12] MEDS ORDERED: DONEPEZIL 5 MG TABLET PO SCH (22:00)
[2023-02-13] MEDS ORDERED: FINASTERIDE (5 MG) 5 MG TABLET PO SCH (09:00)
[2023-02-13] MEDS ORDERED: AMLODIPINE BESYLATE 10 MG TABLET PO SCH (09:00)
[2023-02-13] MEDS ORDERED: ESCITALOPRAM OXALATE (10 MG) 10 MG TABLET PO SCH (09:00)
[2023-02-13] MEDS ORDERED: BENAZEPRIL HCL 20 MG TABLET PO SCH (09:00)
== END 2023-02-12 16:08 | DRG 177 ==
LOC: ER 12:19 → TELE1 16:24
PROVIDERS: ATTEND Internal Medicine
DX: J69.0 Pneumonitis due to inhalation of food and vomit (principal); J96.01 Acute respiratory failure with hypoxia; N17.0 Acute kidney failure with tubular necrosis; J90 Pleural effusion, not elsewhere classified; J93.83 Other pneumothorax; J98.4 Other disorders of lung; F25.9 Schizoaffective disorder, unspecified; J47.9 Bronchiectasis, uncomplicated; D64.9 Anemia, unspecified; E78.5 Hyperlipidemia, unspecified; E87.6 Hypokalemia; I10 Essential (primary) hypertension; M19.90 Unspecified osteoarthritis, unspecified site; N40.0 Benign prostatic hyperplasia without lower urinary tract symptoms; Z79.82 Long term (current) use of aspirin; F03.90 Unspecified dementia, unspecified severity, without behavioral disturbance, psychotic disturbance, mood disturbance, and anxiety; F09 Unspecified mental disorder due to known physiological condition
CPT/HCPCS: 36415; 71045-TC; 71250-TC; 80048-TC; 80053-TC; 80076-TC; 80202-TC; 83605-TC; 83735-TC; 83880; 84100-TC; 84484-TC; 85025-TC; 85730-TC; 87040-TC; 92526; 92611-TC; 94799-TC; 97110-TC; 97530-TC; A4223; A4349; G0378; J0456; J0696; J1650; J2543; J3370; J7030; J7050; J7060

== ENCOUNTER 2023-05-15 17:42 | Emergency (ER) | payer MEDICARE, OTHER ==
[~2023-05-15] VITALS: Ht 152.4 cm; Wt 46.3 kg
[~2023-05-15 17:42] MED LIST changes: +MECL-159 PO; +PETR113O TP; -POTA10TA10 PO
[2023-05-15] MEDS ORDERED: ACETAMINOPHEN 650 MG/SUPP.RECT RC ONE ×2 (18:00→18:17)
[2023-05-15 18:34] LABS: BASOPHILS # (AUTO) 0.1 K/uL (0.0-0.2); BASOPHILS % (AUTO) 0.9 % (0.0-2.0); EOSINOPHILS # (AUTO) 0.5 K/uL (0.0-0.7); EOSINOPHILS % (AUTO) 8.6 % (0.0-6.0); HEMATOCRIT 35 % (39-51); HEMOGLOBIN 11.2 g/dL (13.5-17.5); LYMPHOCYTES # (AUTO) 0.5 K/uL (0.8-4.8); LYMPHOCYTES % (AUTO) 8.3 % (20.0-44.0); MEAN CORPUSCULAR HEMOGLOBIN 29 PG (26.0-33.0); MEAN CORPUSCULAR HGB CONC 32 g/dl (31.0-36.0); MEAN CORPUSCULAR VOLUME 91 fL (80-96); MONOCYTES # (AUTO) 0.8 K/uL (0.1-1.30); MONOCYTES % (AUTO) 13.6 % (2.0-12.0); NEUTROPHILS # (AUTO) 3.9 K/uL (1.8-8.9); NEUTROPHILS % (AUTO) 68.6 % (43.0-81.0); PLATELET COUNT (AUTO) 176 K/uL (150-450); RED BLOOD CELL COUNT(AUTO) 3.83 MIL/uL (4.5-6.0); RED CELL DISTRIBUTION WIDTH 17.1 % (11.5-15.0); WHITE BLOOD COUNT (AUTO) 5.7 K/uL (4.3-11.0)
[2023-05-15 18:56] LABS: CALCIUM, SERUM 8.3 mg/dL (8.5-10.1); CARBON DIOXIDE 20 mmol/L (21-32); CHLORIDE 108 mmol/L (98-107); GLUCOSE 136 mg/dL (74-106); POTASSIUM 4.1 mmol/L (3.5-5.1); SODIUM SERUM 141 mmol/L (136-145); UREA NITROGEN, BLOOD 30 mg/dL (7-18)
[2023-05-15 19:05] LABS: LACTIC ACID 1.1 mmol/L (0.4-2.0)
[2023-05-15 20:28] LABS: APPEARANCE,URINE CLEAR (CLEAR); BILIRUBIN,URINE 1+ (NEGATIVE); BLOOD, URINE NEGATIVE Ery/uL (NEGATIVE); COLOR,URINE YELLOW (YELLOW); KETONES,URINE TRACE mg/dL (NEGATIVE); LEUKOCYTE ESTERASE ,URINE NEGATIVE (NEGATIVE); NITRITE, URINE NEGATIVE (NEGATIVE); PH,URINE 5.5 (5.0-8.0); PROTEIN,URINE 1+ mg/dl (NEGATIVE); UGLUCOSE NEGATIVE (NEGATIVE)
[2023-05-15] MEDS ORDERED: IV NS 0.9% 1,000 ML IV ONE (20:30)
[2023-05-15 20:36] LABS: ADD URINE CULTURE NO; BACTERIA,URINE RARE /HPF (None Seen); HYALINE CASTS, URINE Few /LPF (None Seen); RBC,URINE 0-2 /HPF (0-2); SQUAMOUS EPITHELIAL CELL,UR 0-2 /HPF (None Seen); WBC,URINE 0-2 /HPF (0-3)
[2023-05-15 20:37] LABS: MUCUS,URINE Many /LPF (None Seen); URINE AMORPHOUS URATE Few /HPF (None Seen)
[2023-05-16 00:02] VITALS: BP 142/79; TEMP 98.9; O2SAT 94
[2023-05-16 01:48] LABS: ALANINE AMINOTRANSFERASE 30 U/L (12-78); ALBUMIN 2.8 g/dL (3.4-5.0); ALKALINE PHOSPHATASE 90 U/L (46-116); ASPARTATE AMINOTRANSFERASE 19 U/L (15-37); BILIRUBIN,TOTAL 0.2 mg/dL (0.2-1.0); TOTAL PROTEIN, SERUM 8.7 g/dL (6.4-8.2)
== END 2023-05-16 00:02 ==
LOC: ER 17:44 → TELE1 21:02 → UNDOADMIN 21:02 → ER 05-16 00:02
DX: J06.9 Acute upper respiratory infection, unspecified (principal); F03.90 Unspecified dementia, unspecified severity, without behavioral disturbance, psychotic disturbance, mood disturbance, and anxiety; I10 Essential (primary) hypertension; D64.9 Anemia, unspecified; Z20.822 Contact with and (suspected) exposure to COVID-19; Z79.899 Other long term (current) drug therapy
CPT/HCPCS: 99285; 71045; 87426; 93005; 85025; 80048; 87040 ×2; 87086; 83605; 80076; 81001; 36415; 86850; J7030; C9803

== ENCOUNTER 2023-08-15 18:40 | Inpatient (IN) | payer MEDICARE, OTHER ==
[~2023-08-15] VITALS: Ht 160 cm; Wt 39.5 kg
[~2023-08-15 18:40] MED LIST changes: +ACET-868 GT; -ACET-868 PO; +AMIN30LI2 GT; -AMIN30LI2 PO; +AMLO-213 GT; -AMLO-213 PO; +ASPI-1169 GT; -ASPI-1169 PO; +ATOR20TA GT; -ATOR20TA PO; +BENA20TA9 GT; -BENA20TA9 PO; +CRAN425C6 GT; -CRAN425C6 PO; +DOCU-141 GT; -DOCU-141 PO; +DONE10TA44 GT; -DONE10TA44 PO; +ESCI5TAB GT; -ESCI5TAB PO; +FINA5TAB11 GT; -FINA5TAB11 PO; +IBUP-1957 GT; -IBUP-1957 PO; +MAGN400O6 GT; -MAGN400O6 PO; +MECL-159 GT; -MECL-159 PO; -PETR113O TP; -QUET25TA PO
[2023-08-15 19:21] LABS: BASOPHILS # (AUTO) 0.1 K/uL (0.0-0.2); BASOPHILS % (AUTO) 0.5 % (0.0-2.0); EOSINOPHILS # (AUTO) 0.7 K/uL (0.0-0.7); EOSINOPHILS % (AUTO) 6.7 % (0.0-6.0); HEMATOCRIT 31 % (39-51); HEMOGLOBIN 10.1 g/dL (13.5-17.5); LYMPHOCYTES # (AUTO) 1.5 K/uL (0.8-4.8); LYMPHOCYTES % (AUTO) 13.9 % (20.0-44.0); MEAN CORPUSCULAR HEMOGLOBIN 30 PG (26.0-33.0); MEAN CORPUSCULAR HGB CONC 32 g/dl (31.0-36.0); MEAN CORPUSCULAR VOLUME 93 fL (80-96); MONOCYTES # (AUTO) 0.6 K/uL (0.1-1.30); MONOCYTES % (AUTO) 5.5 % (2.0-12.0); NEUTROPHILS # (AUTO) 7.8 K/uL (1.8-8.9); NEUTROPHILS % (AUTO) 73.4 % (43.0-81.0); PLATELET COUNT (AUTO) 239 K/uL (150-450); RED CELL DISTRIBUTION WIDTH 16.3 % (11.5-15.0); WHITE BLOOD COUNT (AUTO) 10.7 K/uL (4.3-11.0)
[2023-08-15 19:28] LABS: CALCIUM, SERUM 12.2 mg/dL (8.5-10.1); CHLORIDE 115 mmol/L (98-107); CREATININE 1.5 mg/dL (0.6-1.3); GLUCOSE 129 mg/dL (74-106); POTASSIUM 3.1 mmol/L (3.5-5.1)
[2023-08-15 19:42] LABS: ALANINE AMINOTRANSFERASE 56 U/L (12-78); ALBUMIN 1.9 g/dL (3.4-5.0); ALKALINE PHOSPHATASE 89 U/L (46-116); ASPARTATE AMINOTRANSFERASE 38 U/L (15-37); BILIRUBIN,DIRECT 0.1 mg/dL (0.0-0.2); BILIRUBIN,TOTAL 0.2 mg/dL (0.2-1.0); LIPASE 52 U/L (16-77); NT-PRO BNP 621 pg/mL (0-125); TOTAL PROTEIN, SERUM 7.2 g/dL (6.4-8.2)
[2023-08-15 19:47] LABS: CARBON DIOXIDE 40 mmol/L (21-32); SODIUM SERUM 159 mmol/L (136-145); UREA NITROGEN, BLOOD 88 mg/dL (7-18)
[2023-08-15 20:56] LABS: APPEARANCE,URINE SLIGHTLY CLOUDY (CLEAR); BILIRUBIN,URINE NEGATIVE (NEGATIVE); BLOOD, URINE 1+ Ery/uL (NEGATIVE); COLOR,URINE YELLOW (YELLOW); KETONES,URINE NEGATIVE (NEGATIVE); LEUKOCYTE ESTERASE ,URINE 3+ (NEGATIVE); NITRITE, URINE POSITIVE (NEGATIVE); PH,URINE 7.5 (5.0-8.0); PROTEIN,URINE TRACE mg/dl (NEGATIVE); UGLUCOSE NEGATIVE (NEGATIVE); UROBILINOGEN,URINE 0.2 EU/dL (0.2)
[2023-08-15 21:05] LABS: ADD URINE CULTURE YES; BACTERIA,URINE 3+ /HPF (None Seen); RBC,URINE 21-50 /HPF (0-2); WBC,URINE 51-80 /HPF (0-3)
[2023-08-15 21:06] LABS: SQUAMOUS EPITHELIAL CELL,UR 0-2 /HPF (None Seen)
[2023-08-15] MEDS ORDERED: CEFTRIAXONE 1GM BAG (ER ONLY) 50 ML IV ONE (21:18)
[2023-08-15] MEDS ORDERED: POTASSIUM CL. PREMIX PERIPHER. 50 ML ONE (21:19)
[2023-08-15] MEDS: CEFTRIAXONE 1 G in IV D5W 50 ML IV SCH (21:23)
[2023-08-15] MEDS: IV NS 0.9% 1,000 ML BAG IV ONE (21:23)
[2023-08-15] MEDS ORDERED: ACETAMINOPHEN 325 MG TABLET PO PRN (21:30)
[2023-08-15] MEDS ORDERED: hydrALAZINE HCL IV 20 MG VIAL IV PRN (21:30)
[2023-08-15] MEDS ORDERED: MORPHINE SULFATE INJ 2 MG/ML DISP.SYRIN IV PRN (21:30)
[2023-08-15] MEDS ORDERED: LORAZEPAM 1 MG TABLET PO PRN (21:30)
[2023-08-15] MEDS ORDERED: ONDANSETRON HCL/PF 4 MG/2 ML VIAL IVP PRN (21:30)
[2023-08-15] MEDS: CEFTRIAXONE 1GM BAG (ER ONLY) 1 GM/50 ML PIGGYBACK IV ONE (21:53)
[2023-08-15] MEDS: POTASSIUM CL. PREMIX PERIPHER. 50 ML IV SCH (21:53)
[2023-08-15 22:17] LABS: CALCIUM, SERUM 12.3 mg/dL (8.5-10.1); CHLORIDE 116 mmol/L (98-107); CREATININE 1.4 mg/dL (0.6-1.3); GLUCOSE 107 mg/dL (74-106); POTASSIUM 3.7 mmol/L (3.5-5.1)
[2023-08-15 22:43] LABS: ALANINE AMINOTRANSFERASE 56 U/L (12-78); ALBUMIN 1.9 g/dL (3.4-5.0); ALKALINE PHOSPHATASE 93 U/L (46-116); ASPARTATE AMINOTRANSFERASE 36 U/L (15-37); BILIRUBIN,TOTAL 0.2 mg/dL (0.2-1.0); TOTAL PROTEIN, SERUM 7.3 g/dL (6.4-8.2)
[2023-08-15 22:45] LABS: CARBON DIOXIDE 42 mmol/L (21-32); LACTIC ACID 2.2 mmol/L (0.4-2.0); SODIUM SERUM 161 mmol/L (136-145); UREA NITROGEN, BLOOD 87 mg/dL (7-18)
[2023-08-15 23:24] VITALS: BP 140/74; TEMP 97.5; O2SAT 94
[2023-08-15] MEDS: IV 1/2NS 1000 ML 1,000 ML IV SCH (23:30)
[2023-08-16] VITALS: BP 107/72; TEMP 98.3; O2SAT 97
[2023-08-16] MEDS: DONEPEZIL 5 MG TABLET PO SCH (00:09)
[2023-08-16] MEDS: ATORVASTATIN 10 MG TABLET PO SCH (00:09)
[2023-08-16 02:31] LABS: ALANINE AMINOTRANSFERASE 63 U/L (12-78); ALBUMIN 1.9 g/dL (3.4-5.0); ALKALINE PHOSPHATASE 94 U/L (46-116); ASPARTATE AMINOTRANSFERASE 45 U/L (15-37); BILIRUBIN,TOTAL 0.2 mg/dL (0.2-1.0); CALCIUM, SERUM 12.1 mg/dL (8.5-10.1); CARBON DIOXIDE 39 mmol/L (21-32); CHLORIDE 116 mmol/L (98-107); CREATININE 1.3 mg/dL (0.6-1.3); GLUCOSE 112 mg/dL (74-106); POTASSIUM 3.4 mmol/L (3.5-5.1); TOTAL PROTEIN, SERUM 7.3 g/dL (6.4-8.2); UREA NITROGEN, BLOOD 82 mg/dL (7-18)
[2023-08-16 02:32] LABS: SODIUM SERUM 160 mmol/L (136-145)
[2023-08-16 04:00] VITALS: BP_SYST 111; BP_SYST 126; BP_DIAS 75; BP_DIAS 85; TEMP 97.5; TEMP 98.3; O2SAT 97; O2SAT 98
[2023-08-16 07:58] LABS: BASOPHILS % (AUTO) 0.4 % (0.0-2.0); EOSINOPHILS # (AUTO) 0.6 K/uL (0.0-0.7); EOSINOPHILS % (AUTO) 5.8 % (0.0-6.0); HEMATOCRIT 32 % (39-51); HEMOGLOBIN 10.1 g/dL (13.5-17.5); LYMPHOCYTES # (AUTO) 1.5 K/uL (0.8-4.8); MEAN CORPUSCULAR HEMOGLOBIN 30 PG (26.0-33.0); MEAN CORPUSCULAR HGB CONC 32 g/dl (31.0-36.0); MEAN CORPUSCULAR VOLUME 94 fL (80-96); MONOCYTES # (AUTO) 0.5 K/uL (0.1-1.30); MONOCYTES % (AUTO) 4.9 % (2.0-12.0); NEUTROPHILS # (AUTO) 7.6 K/uL (1.8-8.9); NEUTROPHILS % (AUTO) 73.9 % (43.0-81.0); PLATELET COUNT (AUTO) 217 K/uL (150-450); RED CELL DISTRIBUTION WIDTH 16.7 % (11.5-15.0); WHITE BLOOD COUNT (AUTO) 10.3 K/uL (4.3-11.0)
[2023-08-16 08:03] LABS: ALBUMIN 1.9 g/dL (3.4-5.0); BILIRUBIN,TOTAL 0.2 mg/dL (0.2-1.0); CALCIUM, SERUM 12.1 mg/dL (8.5-10.1); CREATININE 1.3 mg/dL (0.6-1.3); MAGNESIUM 2.8 mg/dL (1.8-2.4); PHOSPHORUS 4.1 mg/dL (2.5-4.9); POTASSIUM 3.7 mmol/L (3.5-5.1); TOTAL PROTEIN, SERUM 7.1 g/dL (6.4-8.2)
[2023-08-16] MEDS: FINASTERIDE (5 MG) 5 MG TABLET PO SCH (10:20)
[2023-08-16] MEDS: ESCITALOPRAM OXALATE (10 MG) 10 MG TABLET PO SCH (10:20)
[2023-08-16] MEDS: BENAZEPRIL HCL 20 MG TABLET PO SCH (10:20)
[2023-08-16] MEDS: MEGESTROL ACETATE 40 MG TABLET PO SCH (10:20)
[2023-08-16] MEDS: AMLODIPINE BESYLATE 10 MG TABLET PO SCH (10:21)
[2023-08-16] MEDS: POTASSIUM CL. PREMIX PERIPHER. 50 ML IV SCH (11:08)
[2023-08-16 12:00] VITALS: BP 112/62; TEMP 97.8; O2SAT 98
[2023-08-16] MEDS ORDERED: HYDR-4303 GT (14:23)
[2023-08-16] MEDS ORDERED: IPRA3AMP22 IH (14:23)
[2023-08-16] MEDS ORDERED: LACT100027 GT (14:23)
[2023-08-16] MEDS ORDERED: MULT-213 GT (14:23)
[2023-08-16] MEDS ORDERED: PANT40SU2 GT (14:23)
[2023-08-16] MEDS ORDERED: ZINC220C6 GT (14:23)
[2023-08-16] MEDS ORDERED: ASCO-352 GT (14:23)
[2023-08-16] MEDS ORDERED: FERR220S2 GT (14:23)
[2023-08-16] MEDS: THERAHONEY GEL 1.5 OZ TUBE TP SCH (15:01)
[2023-08-16 16:00] VITALS: BP 107/59; TEMP 97.6; O2SAT 98
[2023-08-16] MEDS ORDERED: BISACODYL SUPP (10 MG) 10 MG/SUPP.RECT SUPP.RECT RC PRN (19:00)
[2023-08-16] MEDS ORDERED: ACETAMINOPHEN 325 MG TABLET MC PRN (19:00)
[2023-08-16] MEDS: IV D5W 1,000 ML IV SCH (19:11)
[2023-08-16] MEDS: ASPIRIN 81 MG TAB.CHEW PO SCH (19:11)
[2023-08-16] MEDS: OSMOLITE 1.2 CAL 1,000 ML LIQUID GT PRN (19:26)
[2023-08-16 20:20] VITALS: BP 100/60; TEMP 97; O2SAT 99
[2023-08-16 22:50] LABS: ALANINE AMINOTRANSFERASE 54 U/L (12-78); ALBUMIN 1.9 g/dL (3.4-5.0); ALKALINE PHOSPHATASE 98 U/L (46-116); ASPARTATE AMINOTRANSFERASE 39 U/L (15-37); BILIRUBIN,TOTAL 0.3 mg/dL (0.2-1.0); CALCIUM, SERUM 11.7 mg/dL (8.5-10.1); CARBON DIOXIDE 32 mmol/L (21-32); CHLORIDE 115 mmol/L (98-107); CREATININE 1.4 mg/dL (0.6-1.3); GLUCOSE 145 mg/dL (74-106); POTASSIUM 3.9 mmol/L (3.5-5.1); TOTAL PROTEIN, SERUM 7.5 g/dL (6.4-8.2); UREA NITROGEN, BLOOD 73 mg/dL (7-18)
[2023-08-16 22:58] LABS: SODIUM SERUM 157 mmol/L (136-145)
[2023-08-17 04:42] VITALS: BP 94/60; TEMP 98; O2SAT 99
[2023-08-17 07:40] LABS: CALCIUM, SERUM 11.2 mg/dL (8.5-10.1); CARBON DIOXIDE 33 mmol/L (21-32); CHLORIDE 114 mmol/L (98-107); CREATININE 1.4 mg/dL (0.6-1.3); GLUCOSE 195 mg/dL (74-106); MAGNESIUM 2.4 mg/dL (1.8-2.4); POTASSIUM 3.7 mmol/L (3.5-5.1); UREA NITROGEN, BLOOD 71 mg/dL (7-18)
[2023-08-17 08:51] LABS: SODIUM SERUM 157 mmol/L (136-145)
[2023-08-17] MEDS: DOCUSATE SODIUM 100 MG CAPSULE PO SCH (08:53)
[2023-08-17 09:54] LABS: THYROID STIMULATING HORMONE 6.881 uIU/mL (0.358-3.74); URIC ACID 8.2 mg/dL (2.6-7.2)
[2023-08-17 12:41] VITALS: BP 112/62; TEMP 97.8; O2SAT 98
[2023-08-17] MEDS: NEPRO 1,000 ML BOTTLE GT PRN (13:43)
[2023-08-17] MEDS: ARGININE/GLUTAMINE/CALCIUM BMB 1 EACH POWD.PACK GT SCH (17:12)
[2023-08-17] MEDS: FERROUS SULFATE - FOR SA ONLY 330 MG/7.5 ML UDC GT SCH (17:12)
[2023-08-17 20:00] VITALS: BP 122/70; TEMP 98.4; O2SAT 98
[2023-08-17] MEDS: IV D5W 1,000 ML IV PRN (23:01)
[2023-08-18 04:00] VITALS: BP 144/96; TEMP 98.1; O2SAT 97
[2023-08-18 07:05] LABS: BASOPHILS % (AUTO) 0.2 % (0.0-2.0); EOSINOPHILS # (AUTO) 0.9 K/uL (0.0-0.7); EOSINOPHILS % (AUTO) 7.1 % (0.0-6.0); HEMATOCRIT 31 % (39-51); HEMOGLOBIN 9.7 g/dL (13.5-17.5); LYMPHOCYTES # (AUTO) 1.5 K/uL (0.8-4.8); LYMPHOCYTES % (AUTO) 12.5 % (20.0-44.0); MEAN CORPUSCULAR HEMOGLOBIN 29 PG (26.0-33.0); MEAN CORPUSCULAR HGB CONC 31 g/dl (31.0-36.0); MEAN CORPUSCULAR VOLUME 93 fL (80-96); MONOCYTES # (AUTO) 0.4 K/uL (0.1-1.30); MONOCYTES % (AUTO) 3.2 % (2.0-12.0); NEUTROPHILS # (AUTO) 9.3 K/uL (1.8-8.9); PLATELET COUNT (AUTO) 216 K/uL (150-450); RED BLOOD CELL COUNT(AUTO) 3.37 MIL/uL (4.5-6.0); RED CELL DISTRIBUTION WIDTH 16.7 % (11.5-15.0); WHITE BLOOD COUNT (AUTO) 12.1 K/uL (4.3-11.0)
[2023-08-18 07:27] LABS: CALCIUM, SERUM 10.9 mg/dL (8.5-10.1); CARBON DIOXIDE 31 mmol/L (21-32); CHLORIDE 111 mmol/L (98-107); CREATININE 1.3 mg/dL (0.6-1.3); GLUCOSE 145 mg/dL (74-106); MAGNESIUM 2.4 mg/dL (1.8-2.4); PHOSPHORUS 3.5 mg/dL (2.5-4.9); SODIUM SERUM 152 mmol/L (136-145); UREA NITROGEN, BLOOD 69 mg/dL (7-18)
[2023-08-18 08:00] VITALS: BP 86/42; TEMP 97.3; O2SAT 95
[2023-08-18 16:00] VITALS: BP 118/57; TEMP 98.3; O2SAT 98
[2023-08-18] MEDS: CADEXOMER IODINE 40 GM TUBE TP SCH (16:30)
[2023-08-18] MEDS: FERROUS SULFATE UDC 300 MG/5 ML UDC GT SCH (17:58)
[2023-08-18 20:00] VITALS: BP 100/53; TEMP 97.9; O2SAT 98
[2023-08-19 04:00] VITALS: BP 107/40; TEMP 97.9; O2SAT 98
[2023-08-19] MEDS ORDERED: POTASSIUM CL. PREMIX PERIPHER. 10 MEQ in IV D5W 1,000 ML IV SCH (07:30)
[2023-08-19] MEDS ORDERED: Potassium Chloride 10 MEQ in IV D5W 1,000 ML IV SCH (07:30)
[2023-08-19] MEDS: Potassium Chloride 10 MEQ in IV D5W 1,000 ML IV SCH ×2 (07:34→21:41)
[2023-08-19 11:12] LABS: CALCIUM, SERUM 10.6 mg/dL (8.5-10.1); MAGNESIUM 2.5 mg/dL (1.8-2.4); PHOSPHORUS 3.2 mg/dL (2.5-4.9); POTASSIUM 3.3 mmol/L (3.5-5.1)
[2023-08-19 11:25] LABS: BASOPHILS % (AUTO) 0.5 % (0.0-2.0); EOSINOPHILS # (AUTO) 0.7 K/uL (0.0-0.7); EOSINOPHILS % (AUTO) 6.9 % (0.0-6.0); HEMATOCRIT 26 % (39-51); HEMOGLOBIN 8.4 g/dL (13.5-17.5); LYMPHOCYTES # (AUTO) 1.4 K/uL (0.8-4.8); LYMPHOCYTES % (AUTO) 13.8 % (20.0-44.0); MEAN CORPUSCULAR HEMOGLOBIN 30 PG (26.0-33.0); MEAN CORPUSCULAR HGB CONC 33 g/dl (31.0-36.0); MEAN CORPUSCULAR VOLUME 92 fL (80-96); MONOCYTES # (AUTO) 0.4 K/uL (0.1-1.30); MONOCYTES % (AUTO) 4.3 % (2.0-12.0); NEUTROPHILS # (AUTO) 7.6 K/uL (1.8-8.9); NEUTROPHILS % (AUTO) 74.5 % (43.0-81.0); PLATELET COUNT (AUTO) 100 K/uL (150-450); RED BLOOD CELL COUNT(AUTO) 2.82 MIL/uL (4.5-6.0); WHITE BLOOD COUNT (AUTO) 10.3 K/uL (4.3-11.0)
[2023-08-19 12:00] VITALS: BP 96/54; TEMP 96.9; O2SAT 98
[2023-08-19 20:00] VITALS: BP 111/56; TEMP 97.8; O2SAT 95
[2023-08-20] VITALS: BP 126/52; TEMP 97.9; O2SAT 91
[2023-08-20 04:00] VITALS: BP 112/80; TEMP 97.9; O2SAT 92
[2023-08-20 08:00] VITALS: BP 138/65; TEMP 98; O2SAT 99
[2023-08-20 10:26] LABS: BILIRUBIN,TOTAL 0.1 mg/dL (0.2-1.0); CALCIUM, SERUM 9.8 mg/dL (8.5-10.1); CREATININE 0.9 mg/dL (0.6-1.3); MAGNESIUM 2.2 mg/dL (1.8-2.4); PHOSPHORUS 3.1 mg/dL (2.5-4.9); POTASSIUM 3.2 mmol/L (3.5-5.1); TOTAL PROTEIN, SERUM 6.2 g/dL (6.4-8.2)
[2023-08-20 10:28] LABS: ALBUMIN 1.3 g/dL (3.4-5.0)
[2023-08-20 11:43] LABS: BASOPHILS % (AUTO) 0.4 % (0.0-2.0); EOSINOPHILS # (AUTO) 0.4 K/uL (0.0-0.7); EOSINOPHILS % (AUTO) 4.4 % (0.0-6.0); HEMATOCRIT 26 % (39-51); HEMOGLOBIN 8.8 g/dL (13.5-17.5); LYMPHOCYTES # (AUTO) 1.1 K/uL (0.8-4.8); LYMPHOCYTES % (AUTO) 13.1 % (20.0-44.0); MEAN CORPUSCULAR HEMOGLOBIN 30 PG (26.0-33.0); MEAN CORPUSCULAR HGB CONC 33 g/dl (31.0-36.0); MEAN CORPUSCULAR VOLUME 90 fL (80-96); MONOCYTES # (AUTO) 0.2 K/uL (0.1-1.30); MONOCYTES % (AUTO) 2.9 % (2.0-12.0); NEUTROPHILS # (AUTO) 6.6 K/uL (1.8-8.9); NEUTROPHILS % (AUTO) 79.2 % (43.0-81.0); PLATELET COUNT (AUTO) 185 K/uL (150-450); RED BLOOD CELL COUNT(AUTO) 2.95 MIL/uL (4.5-6.0); RED CELL DISTRIBUTION WIDTH 16.4 % (11.5-15.0); WHITE BLOOD COUNT (AUTO) 8.4 K/uL (4.3-11.0)
[2023-08-20 11:51] LABS: THYROID STIMULATING HORMONE 4.381 uIU/mL (0.358-3.74)
[2023-08-20 12:15] LABS: ANISOCYTOSIS 1+; BAND % (MANUAL) 14 % (0.0-5.0); EOSINOPHILS % (MANUAL) 4 % (0-4); HYPOCHROMASIA 1+; LYMPHOCYTES % (MANUAL) 10 % (16-48); MONOCYTES % (MANUAL) 4 % (0-11.0); NEUTROPHILS % (MANUAL) 68 (42-76); PLATELET ESTIMATE ADEQUATE
[2023-08-20 16:00] VITALS: BP 142/76; TEMP 98.3; O2SAT 98
[2023-08-20 23:46] VITALS: BP 98/55; TEMP 97.9; O2SAT 97
[2023-08-21 01:03] VITALS: BP 98/55; TEMP 97.9; O2SAT 97
[2023-08-21 04:36] VITALS: BP 98/50; TEMP 98.1; O2SAT 96
[2023-08-21 08:00] VITALS: BP 90/49; TEMP 97.6; O2SAT 96
[2023-08-21 12:00] VITALS: BP 90/49; TEMP 97.6; O2SAT 96
[2023-08-21 16:00] VITALS: BP 95/52; TEMP 97.6; O2SAT 96
[2023-08-21 20:00] VITALS: BP 105/50; TEMP 98.3; O2SAT 97
[2023-08-22 04:00] VITALS: BP 101/67; TEMP 98.5; O2SAT 95
[2023-08-22 08:00] VITALS: BP 101/67; TEMP 98.5; O2SAT 95
[2023-08-22] MEDS: POTASSIUM CHLORIDE 20 MEQ POWDER PACKET GT ONE (09:35)
[2023-08-22 16:00] VITALS: BP 124/58; TEMP 98.9; O2SAT 95
[2023-08-22 20:00] VITALS: BP 131/72; TEMP 98; O2SAT 96
[2023-08-23 04:00] VITALS: BP 116/74; TEMP 98.3; O2SAT 98
[2023-08-23 08:00] VITALS: BP 118/77; TEMP 97.5; O2SAT 94
[2023-08-23 13:07] LABS: BASOPHILS % (AUTO) 0.4 % (0.0-2.0); EOSINOPHILS # (AUTO) 0.3 K/uL (0.0-0.7); HEMATOCRIT 25 % (39-51); HEMOGLOBIN 7.9 g/dL (13.5-17.5); LYMPHOCYTES # (AUTO) 0.8 K/uL (0.8-4.8); LYMPHOCYTES % (AUTO) 30.9 % (20.0-44.0); MEAN CORPUSCULAR HEMOGLOBIN 29 PG (26.0-33.0); MEAN CORPUSCULAR HGB CONC 32 g/dl (31.0-36.0); MEAN CORPUSCULAR VOLUME 91 fL (80-96); MONOCYTES # (AUTO) 0.3 K/uL (0.1-1.30); MONOCYTES % (AUTO) 12.9 % (2.0-12.0); NEUTROPHILS # (AUTO) 1.2 K/uL (1.8-8.9); NEUTROPHILS % (AUTO) 45.8 % (43.0-81.0); PLATELET COUNT (AUTO) 204 K/uL (150-450); RED CELL DISTRIBUTION WIDTH 17.6 % (11.5-15.0); WHITE BLOOD COUNT (AUTO) 2.7 K/uL (4.3-11.0)
[2023-08-23 13:16] LABS: CALCIUM, SERUM 9.1 mg/dL (8.5-10.1); CREATININE 0.9 mg/dL (0.6-1.3)
[2023-08-23 14:13] LABS: EOSINOPHILS % (MANUAL) 9 % (0-4); LYMPHOCYTES % (MANUAL) 32 % (16-48); MONOCYTES % (MANUAL) 6 % (0-11.0); NEUTROPHILS % (MANUAL) 53 (42-76); PLATELET ESTIMATE ADEQUATE
[2023-08-23 14:14] LABS: ANISOCYTOSIS 1+
[2023-08-23] MEDS: POTASSIUM CHLORIDE 20 MEQ TAB.PRT.SR PO ONE ×2 (15:29→17:05)
[2023-08-23 16:00] VITALS: BP 106/86; TEMP 98.4; O2SAT 92
[2023-08-23] MEDS: PIPERACILLIN /TAZOBACTAM 2.25 G in IV D5W 50 ML IV SCH (18:34)
[2023-08-23] MEDS: PROSOURCE / PROSTAT (PYXIS) 30 ML UDC GT SCH (19:30)
[2023-08-23] MEDS: VANCOMYCIN 750 MG in IV D5W 250 ML IV ONE (19:51)
[2023-08-23 20:00] VITALS: BP 109/69; TEMP 97.9; O2SAT 95
[2023-08-24 04:00] VITALS: BP 116/71; TEMP 97.2
[2023-08-24] MEDS ORDERED: LORAZEPAM 1 MG TABLET GT PRN (06:32)
[2023-08-24 08:00] VITALS: BP 79/51; TEMP 98.7; O2SAT 96
[2023-08-24] MEDS ORDERED: IV D5/ 0.9% NACL 1,000 ML IV SCH (08:00)
[2023-08-24] MEDS: DOCUSATE SODIUM LIQ 100 MG/10 ML UDC GT SCH (09:00)
[2023-08-24] MEDS: FINASTERIDE (5 MG) 5 MG TABLET GT SCH (09:00)
[2023-08-24] MEDS: ESCITALOPRAM OXALATE (10 MG) 10 MG TABLET GT SCH (09:00)
[2023-08-24] MEDS: MEGESTROL ACETATE 40 MG TABLET GT SCH (09:00)
[2023-08-24] MEDS: BENAZEPRIL HCL 20 MG TABLET GT SCH (09:00)
[2023-08-24] MEDS: IV D5/ 0.9% NACL 1,000 ML IV PRN (09:30)
[2023-08-24 10:41] LABS: CALCIUM, SERUM 8.9 mg/dL (8.5-10.1); CARBON DIOXIDE 29 mmol/L (21-32); CHLORIDE 111 mmol/L (98-107); CREATININE 0.8 mg/dL (0.6-1.3); GLUCOSE 104 mg/dL (74-106); POTASSIUM 3.5 mmol/L (3.5-5.1); SODIUM SERUM 147 mmol/L (136-145); UREA NITROGEN, BLOOD 58 mg/dL (7-18)
[2023-08-24 10:43] LABS: IRON, SERUM 14 ug/dl (50-175); TOTAL IRON BINDING CAPACITY 104 ug/dl (250-450)
[2023-08-24 10:52] LABS: BASOPHILS % (AUTO) 0.8 % (0.0-2.0); EOSINOPHILS # (AUTO) 0.6 K/uL (0.0-0.7); EOSINOPHILS % (AUTO) 11.1 % (0.0-6.0); HEMATOCRIT 25 % (39-51); HEMOGLOBIN 8.1 g/dL (13.5-17.5); LYMPHOCYTES # (AUTO) 1.8 K/uL (0.8-4.8); LYMPHOCYTES % (AUTO) 34.9 % (20.0-44.0); MEAN CORPUSCULAR HEMOGLOBIN 29 PG (26.0-33.0); MEAN CORPUSCULAR HGB CONC 32 g/dl (31.0-36.0); MEAN CORPUSCULAR VOLUME 90 fL (80-96); MONOCYTES # (AUTO) 0.7 K/uL (0.1-1.30); MONOCYTES % (AUTO) 13.3 % (2.0-12.0); NEUTROPHILS # (AUTO) 2.1 K/uL (1.8-8.9); NEUTROPHILS % (AUTO) 39.9 % (43.0-81.0); PLATELET COUNT (AUTO) 249 K/uL (150-450); RED BLOOD CELL COUNT(AUTO) 2.81 MIL/uL (4.5-6.0); RED CELL DISTRIBUTION WIDTH 17.7 % (11.5-15.0); WHITE BLOOD COUNT (AUTO) 5.2 K/uL (4.3-11.0)
[2023-08-24 11:00] LABS: FERRITIN 957 ng/mL (8-388)
[2023-08-24 16:00] VITALS: BP 114/82; TEMP 98.6; O2SAT 94
[2023-08-24] MEDS: ASPIRIN 81 MG TAB.CHEW GT SCH (17:11)
[2023-08-24] MEDS: VANCOMYCIN 750 MG in IV D5W 250 ML IV SCH (18:25)
[2023-08-24 20:00] VITALS: BP 110/72; TEMP 98; O2SAT 95
[2023-08-24] MEDS: DONEPEZIL 5 MG TABLET GT SCH (21:25)
[2023-08-24] MEDS: ATORVASTATIN 10 MG TABLET GT SCH (21:25)
[2023-08-25 04:00] VITALS: BP 113/74; TEMP 98; O2SAT 98
[2023-08-25 07:12] LABS: BASOPHILS % (AUTO) 0.7 % (0.0-2.0); EOSINOPHILS # (AUTO) 0.4 K/uL (0.0-0.7); EOSINOPHILS % (AUTO) 11.2 % (0.0-6.0); HEMATOCRIT 30 % (39-51); HEMOGLOBIN 9.7 g/dL (13.5-17.5); LYMPHOCYTES # (AUTO) 1.2 K/uL (0.8-4.8); MEAN CORPUSCULAR HEMOGLOBIN 29 PG (26.0-33.0); MEAN CORPUSCULAR HGB CONC 32 g/dl (31.0-36.0); MEAN CORPUSCULAR VOLUME 90 fL (80-96); MONOCYTES # (AUTO) 0.4 K/uL (0.1-1.30); MONOCYTES % (AUTO) 13.5 % (2.0-12.0); NEUTROPHILS # (AUTO) 1.1 K/uL (1.8-8.9); NEUTROPHILS % (AUTO) 35.6 % (43.0-81.0); PLATELET COUNT (AUTO) 275 K/uL (150-450); RED BLOOD CELL COUNT(AUTO) 3.33 MIL/uL (4.5-6.0); RED CELL DISTRIBUTION WIDTH 17.4 % (11.5-15.0); WHITE BLOOD COUNT (AUTO) 3.1 K/uL (4.3-11.0)
[2023-08-25 07:22] LABS: INR 1.2 (0.91-1.10); PROTHROMBIN TIME 12.6 SECS (9.2-11.1)
[2023-08-25 07:32] LABS: CALCIUM, SERUM 9.1 mg/dL (8.5-10.1); CARBON DIOXIDE 26 mmol/L (21-32); CHLORIDE 116 mmol/L (98-107); CREATININE 0.8 mg/dL (0.6-1.3); GLUCOSE 135 mg/dL (74-106); POTASSIUM 3.6 mmol/L (3.5-5.1); SODIUM SERUM 152 mmol/L (136-145); UREA NITROGEN, BLOOD 38 mg/dL (7-18)
[2023-08-25 08:00] VITALS: BP 116/58; TEMP 98; O2SAT 94
[2023-08-25] MEDS: IV D5/0.45 NACL 1,000 ML IV PRN (09:38)
[2023-08-25 16:00] VITALS: BP 118/72; TEMP 96.5; O2SAT 94
[2023-08-25] MEDS ORDERED: ANESTHESIA TRAY IN PYXIS 1 EA TRAY MC ONE (18:08)
[2023-08-25 22:00] VITALS: BP 105/64; TEMP 97; O2SAT 94
[2023-08-26] VITALS (10 sets, daily range): BP systolic 91–115; BP diastolic 50–70; TEMP 97.6–98.9; O2SAT 94–100
[2023-08-26] MEDS: NEOMY SULF/BACITRAC ZN/POLY 15 GM TUBE TP SCH (09:07)
[2023-08-26 10:25] LABS: ABG BASE EXCESS 1.1 mmol/L; ABG OXYGEN SATURATION 94.9 % (92.0-98.5); ABG PCO2 27.5 mmHg (35.0-45.0); ABG PH 7.542 (7.350-7.450); ABG PO2 72.3 mmHg (75.0-100.0); ABG TOTAL HEMOGLOBIN 9.2 G/dL (13.5-18.0); AaDO2 613.2 mmHg; COHb 0.3 % (0.5-1.5); O2Hb 94.6 % (94.0-97.0); SITE, ABG Right Radial; VENT MODE, BG 15 LPM NRB
[2023-08-26] MEDS: IPRATROPIUM NEB FS 0.5 MG/2.5 ML AMPUL.NEB NEB SCH (13:59)
[2023-08-26] MEDS: ALBUTEROL HALF STRENGTH 1.25 MG/3 ML VIAL.NEB NEB SCH (13:59)
[2023-08-26] MEDS: VITAMINS A AND D 56.7 GM TUBE TP SCH (14:35)
[2023-08-26 16:49] LABS: CALCIUM, SERUM 8.4 mg/dL (8.5-10.1); CARBON DIOXIDE 23 mmol/L (21-32); CHLORIDE 118 mmol/L (98-107); CREATININE 0.8 mg/dL (0.6-1.3); GLUCOSE 153 mg/dL (74-106); SODIUM SERUM 152 mmol/L (136-145); UREA NITROGEN, BLOOD 26 mg/dL (7-18)
[2023-08-26 16:50] LABS: POTASSIUM 2.8 mmol/L (3.5-5.1)
[2023-08-27] VITALS (14 sets, daily range): BP systolic 88–115; BP diastolic 46–69; TEMP 97.5–98.2; O2SAT 93–100
[2023-08-27 10:35] LABS: BASOPHILS # (AUTO) 0.1 K/uL (0.0-0.2); BASOPHILS % (AUTO) 1.6 % (0.0-2.0); EOSINOPHILS # (AUTO) 0.5 K/uL (0.0-0.7); EOSINOPHILS % (AUTO) 13.5 % (0.0-6.0); HEMATOCRIT 24 % (39-51); HEMOGLOBIN 7.8 g/dL (13.5-17.5); LYMPHOCYTES # (AUTO) 0.9 K/uL (0.8-4.8); LYMPHOCYTES % (AUTO) 26.1 % (20.0-44.0); MEAN CORPUSCULAR HEMOGLOBIN 29 PG (26.0-33.0); MEAN CORPUSCULAR HGB CONC 32 g/dl (31.0-36.0); MEAN CORPUSCULAR VOLUME 89 fL (80-96); MONOCYTES # (AUTO) 0.2 K/uL (0.1-1.30); MONOCYTES % (AUTO) 6.2 % (2.0-12.0); NEUTROPHILS # (AUTO) 1.8 K/uL (1.8-8.9); NEUTROPHILS % (AUTO) 52.6 % (43.0-81.0); PLATELET COUNT (AUTO) 258 K/uL (150-450); RED BLOOD CELL COUNT(AUTO) 2.73 MIL/uL (4.5-6.0); RED CELL DISTRIBUTION WIDTH 17.2 % (11.5-15.0); WHITE BLOOD COUNT (AUTO) 3.4 K/uL (4.3-11.0)
[2023-08-27 11:52] LABS: CALCIUM, SERUM 8.6 mg/dL (8.5-10.1); CARBON DIOXIDE 24 mmol/L (21-32); CREATININE 0.8 mg/dL (0.6-1.3); GLUCOSE 141 mg/dL (74-106); UREA NITROGEN, BLOOD 31 mg/dL (7-18)
[2023-08-27 12:00] LABS: CHLORIDE 116 mmol/L (98-107); SODIUM SERUM 151 mmol/L (136-145)
[2023-08-27 12:02] LABS: POTASSIUM 2.6 mmol/L (3.5-5.1)
[2023-08-27] MEDS ORDERED: POTASSIUM CHLORIDE 20 MEQ POWDER PACKET GT SCH (14:00)
[2023-08-27] MEDS: PIPERACILLIN /TAZOBACTAM 2.25 G in IV D5W 50 ML IV SCH (14:00)
[2023-08-27] MEDS: POTASSIUM CHLORIDE 20 MEQ POWDER PACKET GT ONE (14:58)
[2023-08-28] VITALS (13 sets, daily range): BP systolic 109–122; BP diastolic 59–92; TEMP 97.7–98.8; O2SAT 94–100
[2023-08-28 13:08] LABS: CALCIUM, SERUM 8.6 mg/dL (8.5-10.1); CREATININE 0.6 mg/dL (0.6-1.3)
[2023-08-28 13:37] LABS: POTASSIUM 2.7 mmol/L (3.5-5.1)
[2023-08-28 14:04] LABS: PROTEIN, BODY FLUID 2.6 G/DL
[2023-08-28 16:16] LABS: APPEARANCE,SPUN,BODY FLUID CLEAR (CLEAR)
[2023-08-28 16:17] LABS: TOTAL VOLUME,BODY FLUID 540 mL
[2023-08-28] MEDS: POTASSIUM CHLORIDE 20 MEQ POWDER PACKET GT ONE ×2 (17:12→22:07)
[2023-08-28 18:49] LABS: MONOCYTES,BODY FLUID 1 %; POLYNUCLEAR, BODY FLUID 86 % (0-25)
[2023-08-28] MEDS ORDERED: POTASSIUM CHLORIDE 20 MEQ POWDER PACKET GT SCH (19:00)
[2023-08-29] VITALS (17 sets, daily range): BP systolic 102–138; BP diastolic 41–75; TEMP 97.1–98.4; O2SAT 97–100
[2023-08-29 06:23] LABS: BASOPHILS % (AUTO) 0.8 % (0.0-2.0); EOSINOPHILS # (AUTO) 0.3 K/uL (0.0-0.7); EOSINOPHILS % (AUTO) 11.9 % (0.0-6.0); HEMATOCRIT 23 % (39-51); HEMOGLOBIN 7.5 g/dL (13.5-17.5); LYMPHOCYTES # (AUTO) 0.8 K/uL (0.8-4.8); LYMPHOCYTES % (AUTO) 33.7 % (20.0-44.0); MEAN CORPUSCULAR HEMOGLOBIN 29 PG (26.0-33.0); MEAN CORPUSCULAR HGB CONC 33 g/dl (31.0-36.0); MEAN CORPUSCULAR VOLUME 89 fL (80-96); MONOCYTES # (AUTO) 0.2 K/uL (0.1-1.30); MONOCYTES % (AUTO) 9.5 % (2.0-12.0); NEUTROPHILS # (AUTO) 1.1 K/uL (1.8-8.9); NEUTROPHILS % (AUTO) 44.1 % (43.0-81.0); PLATELET COUNT (AUTO) 261 K/uL (150-450); RED CELL DISTRIBUTION WIDTH 17.1 % (11.5-15.0); WHITE BLOOD COUNT (AUTO) 2.4 K/uL (4.3-11.0)
[2023-08-29 08:21] LABS: CALCIUM, SERUM 8.4 mg/dL (8.5-10.1); CREATININE 0.7 mg/dL (0.6-1.3); POTASSIUM 3.6 mmol/L (3.5-5.1)
[2023-08-29] MEDS: IV D5W 1,000 ML IV PRN (09:50)
[2023-08-29] MEDS: METOCLOPRAMIDE HCL 10 MG/2 ML VIAL IV SCH (13:31)
[2023-08-29 18:50] LABS: HEMATOCRIT 22 % (39-51); MEAN CORPUSCULAR HEMOGLOBIN 29 PG (26.0-33.0); MEAN CORPUSCULAR HGB CONC 32 g/dl (31.0-36.0); MEAN CORPUSCULAR VOLUME 91 fL (80-96); PLATELET COUNT (AUTO) 251 K/uL (150-450); RED BLOOD CELL COUNT(AUTO) 2.39 MIL/uL (4.5-6.0); RED CELL DISTRIBUTION WIDTH 17.5 % (11.5-15.0); WHITE BLOOD COUNT (AUTO) 2.6 K/uL (4.3-11.0)
[2023-08-29 19:42] LABS: HEMOGLOBIN 6.8 g/dL (13.5-17.5)
[2023-08-30] VITALS (16 sets, daily range): BP systolic 102–132; BP diastolic 52–89; TEMP 97.1–98.2; O2SAT 95–100
[2023-08-30 06:35] LABS: BASOPHILS % (AUTO) 0.6 % (0.0-2.0); EOSINOPHILS # (AUTO) 0.5 K/uL (0.0-0.7); EOSINOPHILS % (AUTO) 15.9 % (0.0-6.0); HEMATOCRIT 29 % (39-51); HEMOGLOBIN 9.3 g/dL (13.5-17.5); LYMPHOCYTES # (AUTO) 1.1 K/uL (0.8-4.8); LYMPHOCYTES % (AUTO) 36.2 % (20.0-44.0); MEAN CORPUSCULAR HEMOGLOBIN 29 PG (26.0-33.0); MEAN CORPUSCULAR HGB CONC 32 g/dl (31.0-36.0); MEAN CORPUSCULAR VOLUME 91 fL (80-96); MONOCYTES # (AUTO) 0.4 K/uL (0.1-1.30); MONOCYTES % (AUTO) 12.4 % (2.0-12.0); NEUTROPHILS # (AUTO) 1.1 K/uL (1.8-8.9); NEUTROPHILS % (AUTO) 34.9 % (43.0-81.0); PLATELET COUNT (AUTO) 225 K/uL (150-450); RED BLOOD CELL COUNT(AUTO) 3.23 MIL/uL (4.5-6.0); RED CELL DISTRIBUTION WIDTH 16.9 % (11.5-15.0); WHITE BLOOD COUNT (AUTO) 3.2 K/uL (4.3-11.0)
[2023-08-30 07:38] LABS: CALCIUM, SERUM 8.2 mg/dL (8.5-10.1); CARBON DIOXIDE 23 mmol/L (21-32); CHLORIDE 117 mmol/L (98-107); CREATININE 0.6 mg/dL (0.6-1.3); GLUCOSE 132 mg/dL (74-106); POTASSIUM 3.2 mmol/L (3.5-5.1); SODIUM SERUM 150 mmol/L (136-145); UREA NITROGEN, BLOOD 29 mg/dL (7-18)
[2023-08-30 08:21] LABS: MAGNESIUM 1.9 mg/dL (1.8-2.4); PHOSPHORUS 2.5 mg/dL (2.5-4.9)
[2023-08-30] MEDS: POTASSIUM CHLORIDE 20 MEQ POWDER PACKET PO ONE (09:20)
[2023-08-31] VITALS (14 sets, daily range): BP systolic 93–117; BP diastolic 45–96; TEMP 96.5–98.9; O2SAT 96–100
[2023-08-31 02:02] LABS: CALCIUM, SERUM 8.3 mg/dL (8.5-10.1); CREATININE 0.7 mg/dL (0.6-1.3); MAGNESIUM 1.7 mg/dL (1.8-2.4); POTASSIUM 3.7 mmol/L (3.5-5.1)
[2023-08-31 07:20] LABS: BASOPHILS % (AUTO) 0.5 % (0.0-2.0); EOSINOPHILS # (AUTO) 0.8 K/uL (0.0-0.7); EOSINOPHILS % (AUTO) 14.5 % (0.0-6.0); HEMATOCRIT 31 % (39-51); HEMOGLOBIN 10.3 g/dL (13.5-17.5); LYMPHOCYTES # (AUTO) 2.2 K/uL (0.8-4.8); LYMPHOCYTES % (AUTO) 38.2 % (20.0-44.0); MEAN CORPUSCULAR HEMOGLOBIN 30 PG (26.0-33.0); MEAN CORPUSCULAR HGB CONC 34 g/dl (31.0-36.0); MEAN CORPUSCULAR VOLUME 88 fL (80-96); MONOCYTES # (AUTO) 0.6 K/uL (0.1-1.30); MONOCYTES % (AUTO) 10.8 % (2.0-12.0); PLATELET COUNT (AUTO) 280 K/uL (150-450); RED BLOOD CELL COUNT(AUTO) 3.49 MIL/uL (4.5-6.0); WHITE BLOOD COUNT (AUTO) 5.6 K/uL (4.3-11.0)
[2023-08-31] MEDS: MAGNESIUM OXIDE 400 MG TABLET NG ONE (11:00)
[2023-08-31 12:45] LABS: CALCIUM, SERUM 7.6 mg/dL (8.5-10.1); CARBON DIOXIDE 28 mmol/L (21-32); CHLORIDE 106 mmol/L (98-107); CREATININE 0.6 mg/dL (0.6-1.3); GLUCOSE 255 mg/dL (74-106); POTASSIUM 2.9 mmol/L (3.5-5.1); SODIUM SERUM 140 mmol/L (136-145); UREA NITROGEN, BLOOD 28 mg/dL (7-18)
[2023-08-31] MEDS: POTASSIUM CHLORIDE 20 MEQ POWDER PACKET GT ONE ×2 (17:08→17:34)
[2023-08-31] MEDS ORDERED: PIPE3.379 IV (18:03)
[2023-08-31] MEDS: IV NS 0.9% 1,000 ML IV PRN (22:19)
[2023-09-01] VITALS (10 sets, daily range): BP systolic 95–119; BP diastolic 46–55; TEMP 98.1–98.8; O2SAT 93–100
[2023-09-01 07:14] LABS: BASOPHILS % (AUTO) 0.5 % (0.0-2.0); EOSINOPHILS # (AUTO) 0.4 K/uL (0.0-0.7); EOSINOPHILS % (AUTO) 12.4 % (0.0-6.0); HEMATOCRIT 24 % (39-51); LYMPHOCYTES % (AUTO) 31.4 % (20.0-44.0); MEAN CORPUSCULAR HEMOGLOBIN 29 PG (26.0-33.0); MEAN CORPUSCULAR HGB CONC 33 g/dl (31.0-36.0); MEAN CORPUSCULAR VOLUME 88 fL (80-96); MONOCYTES # (AUTO) 0.4 K/uL (0.1-1.30); NEUTROPHILS # (AUTO) 1.4 K/uL (1.8-8.9); NEUTROPHILS % (AUTO) 43.7 % (43.0-81.0); PLATELET COUNT (AUTO) 216 K/uL (150-450); RED BLOOD CELL COUNT(AUTO) 2.75 MIL/uL (4.5-6.0); RED CELL DISTRIBUTION WIDTH 16.5 % (11.5-15.0); WHITE BLOOD COUNT (AUTO) 3.3 K/uL (4.3-11.0)
[2023-09-01 11:32] LABS: CALCIUM, SERUM 7.7 mg/dL (8.5-10.1); CARBON DIOXIDE 26 mmol/L (21-32); CHLORIDE 113 mmol/L (98-107); CREATININE 0.6 mg/dL (0.6-1.3); GLUCOSE 106 mg/dL (74-106); SODIUM SERUM 145 mmol/L (136-145); UREA NITROGEN, BLOOD 21 mg/dL (7-18)
== END 2023-09-01 15:30 | disposition hospice, home (50) | DRG 673 ==
LOC: ER 18:52 → MEDSG1 20:53 → TELE1 08-26 06:48
PROVIDERS: ADMIT Internal Medicine; ATTEND Nurse Practitioner Acute Care
PROC: 0JB70ZZ Excision of Back Subcutaneous Tissue and Fascia, Open Approach (ICD-10-PCS; principal; 2023-08-17)
PROC: 05HB33Z Insertion of Infusion Device into Right Basilic Vein, Percutaneous Approach (ICD-10-PCS; 2023-08-17)
PROC: 0JBR0ZZ Excision of Left Foot Subcutaneous Tissue and Fascia, Open Approach (ICD-10-PCS; 2023-08-18)
PROC: 0JBQ0ZZ Excision of Right Foot Subcutaneous Tissue and Fascia, Open Approach (ICD-10-PCS; 2023-08-18)
PROC: 0JB70ZZ Excision of Back Subcutaneous Tissue and Fascia, Open Approach (ICD-10-PCS; 2023-08-24)
PROC: 0DH63UZ Insertion of Feeding Device into Stomach, Percutaneous Approach (ICD-10-PCS; 2023-08-25)
PROC: 0W993ZZ Drainage of Right Pleural Cavity, Percutaneous Approach (ICD-10-PCS; 2023-08-28)
PROC: 30233N1 Transfusion of Nonautologous Red Blood Cells into Peripheral Vein, Percutaneous Approach (ICD-10-PCS; 2023-08-29)
PROC: 0JB70ZZ Excision of Back Subcutaneous Tissue and Fascia, Open Approach (ICD-10-PCS; 2023-09-01)
DX: N39.0 Urinary tract infection, site not specified (principal); E43 Unspecified severe protein-calorie malnutrition; L89.613 Pressure ulcer of right heel, stage 3; L89.523 Pressure ulcer of left ankle, stage 3; N17.0 Acute kidney failure with tubular necrosis; L89.103 Pressure ulcer of unspecified part of back, stage 3; R53.2 Functional quadriplegia; J96.01 Acute respiratory failure with hypoxia; G93.41 Metabolic encephalopathy; J18.9 Pneumonia, unspecified organism; E87.0 Hyperosmolality and hypernatremia; K94.23 Gastrostomy malfunction; D68.69 Other thrombophilia; R64 Cachexia; Z68.1 Body mass index [BMI] 19.9 or less, adult; E86.0 Dehydration; R62.7 Adult failure to thrive; Y83.3 Surgical operation with formation of external stoma as the cause of abnormal reaction of the patient, or of later complication, without mention of misadventure at the time of the procedure; Y82.8 Other medical devices associated with adverse incidents; Z20.822 Contact with and (suspected) exposure to COVID-19; R53.1 Weakness; D63.8 Anemia in other chronic diseases classified elsewhere; E78.5 Hyperlipidemia, unspecified; E83.52 Hypercalcemia; E87.6 Hypokalemia; E88.09 Other disorders of plasma-protein metabolism, not elsewhere classified; F25.9 Schizoaffective disorder, unspecified; I10 Essential (primary) hypertension; I25.10 Atherosclerotic heart disease of native coronary artery without angina pectoris; M24.561 Contracture, right knee; M24.562 Contracture, left knee; N40.0 Benign prostatic hyperplasia without lower urinary tract symptoms; R13.10 Dysphagia, unspecified; Z79.82 Long term (current) use of aspirin; K29.70 Gastritis, unspecified, without bleeding; L85.3 Xerosis cutis; M24.542 Contracture, left hand; M24.541 Contracture, right hand; L89.156 Pressure-induced deep tissue damage of sacral region; L89.140 Pressure ulcer of left lower back, unstageable; L89.130 Pressure ulcer of right lower back, unstageable; L89.890 Pressure ulcer of other site, unstageable; B96.5 Pseudomonas (aeruginosa) (mallei) (pseudomallei) as the cause of diseases classified elsewhere; F09 Unspecified mental disorder due to known physiological condition; F03.90 Unspecified dementia, unspecified severity, without behavioral disturbance, psychotic disturbance, mood disturbance, and anxiety; S00.412A Abrasion of left ear, initial encounter; X58.XXXA Exposure to other specified factors, initial encounter; Y93.9 Activity, unspecified; Y92.129 Unspecified place in nursing home as the place of occurrence of the external cause
CPT/HCPCS: 31720; 36410; 36415; 36600; 43246; 71045-TC; 74150-TC; 76770-TC; 80048-TC; 80053-TC; 80076-TC; 81001; 82550-TC; 82728-TC; 82803-TC; 83540-TC; 83605-TC; 83690-TC; 83735-TC; 83880; 84100-TC; 84439-TC; 84443-TC; 84481; 84484-TC; 84550-TC; 85025-TC; 85027-TC; 85610-TC; 86850-TC; 87086-TC; 87102-TC; 89051-TC; 94760-TC; 94762-TC; 94799-TC; A4223; A6253; A6403; G0378; J0696; J2543; J2704; J2765; J3371; J3480; J3490; J7030; J7042; J7050; J7060; J7070; P9016

== ENCOUNTER 2023-09-09 11:08 | Inpatient (IN) | payer MEDICARE, OTHER ==
[~2023-09-09] VITALS: Ht 162.6 cm; Wt 36.3 kg
[~2023-09-09 11:08] MED LIST changes: +ASCO-352 GT; +FERR220S2 GT; +HYDR-4303 GT; +IPRA3AMP22 IH; +LACT100027 GT; -LORA-259 PO; -MEGE40TA7 PO; +MULT-213 GT; +PANT40SU2 GT; +PIPE3.379 IV; -TEMA15CA5 PO; +ZINC220C6 GT
[2023-09-09] MEDS ORDERED: COLL30OI TP (11:46)
[2023-09-09] MEDS ORDERED: POVI3780 TP (11:46)
[2023-09-09] MEDS ORDERED: SILVER ALGINATE TP (11:46)
[2023-09-09] MEDS ORDERED: ALLA266C2 TP (11:46)
[2023-09-09] MEDS ORDERED: AMIN30LI66 GT (11:46)
[2023-09-09] MEDS ORDERED: FERR325T28 GT (11:46)
[2023-09-09 11:48] LABS: BASOPHILS % (AUTO) 1.2 % (0.0-2.0); EOSINOPHILS # (AUTO) 0.3 K/uL (0.0-0.7); EOSINOPHILS % (AUTO) 10.2 % (0.0-6.0); HEMATOCRIT 23 % (39-51); HEMOGLOBIN 7.3 g/dL (13.5-17.5); LYMPHOCYTES # (AUTO) 0.7 K/uL (0.8-4.8); LYMPHOCYTES % (AUTO) 26.7 % (20.0-44.0); MEAN CORPUSCULAR HEMOGLOBIN 27 PG (26.0-33.0); MEAN CORPUSCULAR HGB CONC 32 g/dl (31.0-36.0); MEAN CORPUSCULAR VOLUME 85 fL (80-96); MONOCYTES # (AUTO) 0.4 K/uL (0.1-1.30); NEUTROPHILS # (AUTO) 1.2 K/uL (1.8-8.9); NEUTROPHILS % (AUTO) 45.9 % (43.0-81.0); PLATELET COUNT (AUTO) 420 K/uL (150-450); RED BLOOD CELL COUNT(AUTO) 2.67 MIL/uL (4.5-6.0); RED CELL DISTRIBUTION WIDTH 16.6 % (11.5-15.0); WHITE BLOOD COUNT (AUTO) 2.5 K/uL (4.3-11.0)
[2023-09-09 11:58] LABS: CALCIUM, SERUM 7.6 mg/dL (8.5-10.1); CARBON DIOXIDE 25 mmol/L (21-32); CHLORIDE 104 mmol/L (98-107); CREATININE 0.6 mg/dL (0.6-1.3); GLUCOSE 135 mg/dL (74-106); INR 1.17 (0.91-1.10); PARTIAL THROMBOPLASTIN TIME 30.1 SEC (24.3-34.3); POTASSIUM 4.5 mmol/L (3.5-5.1); PROTHROMBIN TIME 12.3 SECS (9.2-11.1); SODIUM SERUM 136 mmol/L (136-145); UREA NITROGEN, BLOOD 20 mg/dL (7-18)
[2023-09-09 12:10] LABS: ALKALINE PHOSPHATASE 85 U/L (46-116); ASPARTATE AMINOTRANSFERASE 31 U/L (15-37); BILIRUBIN,DIRECT 0.1 mg/dL (0.0-0.2); BILIRUBIN,TOTAL 0.2 mg/dL (0.2-1.0); TOTAL PROTEIN, SERUM 6.4 g/dL (6.4-8.2)
[2023-09-09 12:13] LABS: APPEARANCE,URINE CLOUDY (CLEAR); BILIRUBIN,URINE NEGATIVE (NEGATIVE); BLOOD, URINE 1+ Ery/uL (NEGATIVE); COLOR,URINE YELLOW (YELLOW); KETONES,URINE NEGATIVE (NEGATIVE); LEUKOCYTE ESTERASE ,URINE 3+ (NEGATIVE); NITRITE, URINE NEGATIVE (NEGATIVE); PH,URINE 7.5 (5.0-8.0); PROTEIN,URINE 1+ mg/dl (NEGATIVE); UGLUCOSE NEGATIVE (NEGATIVE)
[2023-09-09 12:23] LABS: ALANINE AMINOTRANSFERASE 44 U/L (12-78)
[2023-09-09 12:23] LABS: ADD URINE CULTURE YES; BACTERIA,URINE Moderate /HPF (None Seen); SQUAMOUS EPITHELIAL CELL,UR Rare /HPF (None Seen); WBC,URINE 21-50 /HPF (0-3)
[2023-09-09] MEDS: CEFTRIAXONE 1 G in IV D5W 50 ML IV ONE (13:15)
[2023-09-09] MEDS ORDERED: hydrALAZINE HCL IV 20 MG VIAL IV PRN (13:30)
[2023-09-09] MEDS ORDERED: MECLIZINE HCL 25 MG TABLET GT PRN (13:30)
[2023-09-09] MEDS ORDERED: CEFTRIAXONE 1GM BAG (ER ONLY) 50 ML IV ONE (13:30)
[2023-09-09] MEDS ORDERED: ONDANSETRON HCL/PF 4 MG/2 ML VIAL IVP PRN (13:30)
[2023-09-09] MEDS: IV NS 0.9% 1,000 ML BAG IV ONE (13:30)
[2023-09-09] MEDS ORDERED: ACETAMINOPHEN 650 MG/20.3 ML UDC GT PRN (13:30)
[2023-09-09 13:37] LABS: ABG OXYGEN SATURATION 97.4 % (92.0-98.5); ABG PCO2 27.4 mmHg (35.0-45.0); ABG PH 7.513 (7.350-7.450); ABG PO2 99.9 mmHg (75.0-100.0); ABG TOTAL HEMOGLOBIN 7.8 G/dL (13.5-18.0); AaDO2 139.4 mmHg; COHb 0.1 % (0.5-1.5); MetHb 0.2 % (0.0-1.5); O2Hb 97.1 % (94.0-97.0); SITE, ABG Right Radial; VENT MODE, BG SIMPLE MASK
[2023-09-09] MEDS: AZITHROMYCIN 500 MG in IV D5W 250 ML IV ONE (14:15)
[2023-09-09 16:00] VITALS: BP 109/57; TEMP 98.6; O2SAT 97
[2023-09-09] MEDS: ASCORBIC ACID 500 MG TABLET GT SCH (16:19)
[2023-09-09] MEDS: DOCUSATE SODIUM LIQ 100 MG/10 ML UDC GT SCH (16:19)
[2023-09-09] MEDS: VANCOMYCIN 1 GM in IV D5W 250ml IV ONE (17:03)
[2023-09-09] MEDS ORDERED: IPRATROPIUM/ALBUTEROL INHALER IH SCH (18:00)
[2023-09-09] MEDS ORDERED: ALBUTEROL FS 2.5 MG/0.5 ML VIAL.NEB NEB PRN (18:00)
[2023-09-09] MEDS ORDERED: ASPIRIN 81 MG TAB.CHEW GT SCH (18:00)
[2023-09-09 19:50] LABS: THYROID STIMULATING HORMONE 6.714 uIU/mL (0.358-3.74)
[2023-09-09 21:49] LABS: HEMOGLOBIN 7.4 g/dL (13.5-17.5)
[2023-09-09] MEDS: DONEPEZIL 5 MG TABLET GT SCH (22:00)
[2023-09-09] MEDS: ATORVASTATIN 10 MG TABLET GT SCH (22:00)
[2023-09-09] MEDS: MORPHINE SULFATE INJ 2 MG/ML DISP.SYRIN IV PRN (22:16)
[2023-09-09 22:25] LABS: RHEUMATOID FACTOR SCREEN NEGATIVE (NEGATIVE)
[2023-09-10] VITALS (18 sets, daily range): BP systolic 84–101; BP diastolic 47–87; TEMP 97.3–99.1; O2SAT 92–100
[2023-09-10] MEDS: ALBUTEROL FS 2.5 MG/3 ML VIAL.NEB NEB SCH (02:01)
[2023-09-10] MEDS: IPRATROPIUM NEB FS 0.5 MG/2.5 ML AMPUL.NEB NEB SCH (02:01)
[2023-09-10 03:18] LABS: HIV-1 p24 ANTIGEN NON REACTIVE (NONREACTIVE); HIV-1/2 ANTIBODY NON REACTIVE (NONREACTIVE)
[2023-09-10 06:57] LABS: ALANINE AMINOTRANSFERASE 30 U/L (12-78); ALKALINE PHOSPHATASE 74 U/L (46-116); ASPARTATE AMINOTRANSFERASE 40 U/L (15-37); BILIRUBIN,TOTAL 0.4 mg/dL (0.2-1.0); CALCIUM, SERUM 7.9 mg/dL (8.5-10.1); CARBON DIOXIDE 22 mmol/L (21-32); CHLORIDE 106 mmol/L (98-107); CREATININE 0.5 mg/dL (0.6-1.3); GLUCOSE 75 mg/dL (74-106); MAGNESIUM 2.3 mg/dL (1.8-2.4); PHOSPHORUS 3.6 mg/dL (2.5-4.9); POTASSIUM 4.8 mmol/L (3.5-5.1); SODIUM SERUM 136 mmol/L (136-145); TOTAL PROTEIN, SERUM 6.3 g/dL (6.4-8.2); UREA NITROGEN, BLOOD 17 mg/dL (7-18)
[2023-09-10 07:10] LABS: OCCULT BLOOD STOOL NEGATIVE (NEGATIVE)
[2023-09-10 07:41] LABS: ALBUMIN 0.9 g/dL (3.4-5.0)
[2023-09-10 07:46] LABS: BASOPHILS % (AUTO) 0.9 % (0.0-2.0); EOSINOPHILS # (AUTO) 0.2 K/uL (0.0-0.7); EOSINOPHILS % (AUTO) 6.6 % (0.0-6.0); HEMATOCRIT 22 % (39-51); LYMPHOCYTES # (AUTO) 0.8 K/uL (0.8-4.8); MEAN CORPUSCULAR HEMOGLOBIN 27 PG (26.0-33.0); MEAN CORPUSCULAR HGB CONC 32 g/dl (31.0-36.0); MEAN CORPUSCULAR VOLUME 86 fL (80-96); MONOCYTES # (AUTO) 0.4 K/uL (0.1-1.30); MONOCYTES % (AUTO) 15.7 % (2.0-12.0); NEUTROPHILS # (AUTO) 1.4 K/uL (1.8-8.9); NEUTROPHILS % (AUTO) 48.8 % (43.0-81.0); PLATELET COUNT (AUTO) 423 K/uL (150-450); RED BLOOD CELL COUNT(AUTO) 2.52 MIL/uL (4.5-6.0); RED CELL DISTRIBUTION WIDTH 16.7 % (11.5-15.0); WHITE BLOOD COUNT (AUTO) 2.9 K/uL (4.3-11.0)
[2023-09-10 07:48] LABS: HEMOGLOBIN 6.9 g/dL (13.5-17.5)
[2023-09-10] MEDS: FERROUS SULFATE (325 MG) 325 MG/TAB TABLET GT SCH (08:13)
[2023-09-10] MEDS: ESCITALOPRAM OXALATE (10 MG) 10 MG TABLET GT SCH (08:14)
[2023-09-10] MEDS: BENAZEPRIL HCL 20 MG TABLET GT SCH (08:14)
[2023-09-10] MEDS: AMLODIPINE BESYLATE 10 MG TABLET GT SCH (08:14)
[2023-09-10] MEDS: FINASTERIDE (5 MG) 5 MG TABLET GT SCH (08:15)
[2023-09-10] MEDS: PANTOPRAZOLE 40 MG/PACK PACK GT SCH (08:15)
[2023-09-10] MEDS: THERAHONEY GEL 1.5 OZ TUBE TP SCH ×2 (09:00→15:04)
[2023-09-10] MEDS: ALBUMIN 25% 25 GM in PREMIX 1 EA IV SCH (09:46)
[2023-09-10] MEDS: CEFEPIME 2 GM in IV D5W 100 ML IV SCH (10:11)
[2023-09-10] MEDS: VANCOMYCIN 750 MG in IV D5W 250 ML IV SCH (11:03)
[2023-09-10 20:07] LABS: BAND % (MANUAL) 6 % (0.0-5.0); EOSINOPHILS % (MANUAL) 6 % (0-4); LYMPHOCYTES % (MANUAL) 30 % (16-48); MONOCYTES % (MANUAL) 14 % (0-11.0); NEUTROPHILS % (MANUAL) 44 (42-76); PLATELET ESTIMATE ADEQUATE
[2023-09-10 20:08] LABS: ANISOCYTOSIS 1+; OVALOCYTES RARE
[2023-09-10 20:09] LABS: ROULEAUX 1+; TEAR DROP CELLS RARE
[2023-09-10 20:49] LABS: HEMOGLOBIN 8.6 g/dL (13.5-17.5)
[2023-09-10 21:07] LABS: D-DIMER 3.36 mg/L(FEU (0.17-0.50); INR 1.24 (0.91-1.10); PARTIAL THROMBOPLASTIN TIME 31.6 SEC (24.3-34.3)
[2023-09-11] VITALS (13 sets, daily range): BP systolic 106–138; BP diastolic 62–76; TEMP 97.5–98.8; O2SAT 92–98
[2023-09-11 06:39] LABS: BASOPHILS % (AUTO) 1.1 % (0.0-2.0); EOSINOPHILS # (AUTO) 0.3 K/uL (0.0-0.7); EOSINOPHILS % (AUTO) 13.6 % (0.0-6.0); HEMATOCRIT 26 % (39-51); HEMOGLOBIN 8.6 g/dL (13.5-17.5); LYMPHOCYTES # (AUTO) 0.8 K/uL (0.8-4.8); LYMPHOCYTES % (AUTO) 30.5 % (20.0-44.0); MEAN CORPUSCULAR HEMOGLOBIN 28 PG (26.0-33.0); MEAN CORPUSCULAR HGB CONC 33 g/dl (31.0-36.0); MEAN CORPUSCULAR VOLUME 85 fL (80-96); MONOCYTES # (AUTO) 0.4 K/uL (0.1-1.30); MONOCYTES % (AUTO) 14.1 % (2.0-12.0); NEUTROPHILS % (AUTO) 40.7 % (43.0-81.0); PLATELET COUNT (AUTO) 397 K/uL (150-450); RED BLOOD CELL COUNT(AUTO) 3.05 MIL/uL (4.5-6.0); RED CELL DISTRIBUTION WIDTH 16.4 % (11.5-15.0); WHITE BLOOD COUNT (AUTO) 2.6 K/uL (4.3-11.0)
[2023-09-11 06:48] LABS: D-DIMER 3.72 mg/L(FEU (0.17-0.50); INR 1.24 (0.91-1.10); PARTIAL THROMBOPLASTIN TIME 30.9 SEC (24.3-34.3)
[2023-09-11 07:07] LABS: CALCIUM, SERUM 8.2 mg/dL (8.5-10.1); CARBON DIOXIDE 22 mmol/L (21-32); CHLORIDE 108 mmol/L (98-107); CREATININE 0.5 mg/dL (0.6-1.3); GLUCOSE 76 mg/dL (74-106); POTASSIUM 3.5 mmol/L (3.5-5.1); SODIUM SERUM 140 mmol/L (136-145); UREA NITROGEN, BLOOD 14 mg/dL (7-18)
[2023-09-11 08:08] LABS: HEPATITIS B SURFACE AB Non Reactive (.)
[2023-09-11 08:50] LABS: HEMOGLOBIN 8.1 g/dL (13.5-17.5)
[2023-09-11 09:08] LABS: *SPE A/G RATIO 0.3 (0.7-1.7); *SPE ALBUMIN 1.3 g/dL (2.9-4.4); *SPE ALPHA-1-GLOBULIN 0.5 g/dL (0.0-0.4); *SPE BETA GLOBULIN 0.9 g/dL (0.7-1.3); *SPE GLOBULIN, TOTAL 4.6 g/dL (2.2-3.9); *SPE M-SPIKE Not Observed g/dL (Not Observed); *SPE PROTEIN TOTAL 5.9 g/dL (6.0-8.5); *SPEGAMMA GLOBULIN 2.1 g/dL (0.4-1.8)
[2023-09-11] MEDS: Z GUARD REMEDY 4 OZ OINT TP SCH (12:06)
[2023-09-11 12:08] LABS: *ANA ANTI-CENTROMERE B AB <0.2 AI (0.0-0.9); *ANA ANTI-DNA(DS) AB, QN <1 IU/mL (0-9); *ANA ANTI-JO-1 <0.2 AI (0.0-0.9); *ANA ANTICHROMATIN ANTIBODY <0.2 AI (0.0-0.9); *ANA RNP ANTIBODIES 0.8 AI (0.0-0.9); *ANA SJOGREN'S ANTI-SS-A <0.2 AI (0.0-0.9); *ANA SJOGREN'S ANTI-SS-B <0.2 AI (0.0-0.9); *ANAANTI-SCLERODERMA-70 AB <0.2 AI (0.0-0.9); *ANASMITH AB <0.2 AI (0.0-0.9)
[2023-09-11 13:07] LABS: IMMUNOGLOBULIN A, SERUM 786 mg/dL (61-437); IMMUNOGLOBULIN G, SERUM 2042 mg/dL (603-1613); IMMUNOGLOBULIN M, SERUM 76 mg/dL (15-143)
[2023-09-11] MEDS: JEVITY 1.5 CAL LIQUID 1,000 ML BOTTLE GT PRN (13:52)
[2023-09-11] MEDS ORDERED: JEVITY 1.5 CAL LIQUID 1,000 ML BOTTLE GT PRN (14:00)
[2023-09-11 17:08] LABS: FREE KAPPA LT CHAINS SERUM 187.4 mg/L (3.3-19.4); FREE LAMBDA LT CHAIN SERUM 174.2 mg/L (5.7-26.3); KAPPA/LAMBDA RATIO SERUM 1.08 (0.26-1.65)
[2023-09-11 20:48] LABS: HEMOGLOBIN 8.9 g/dL (13.5-17.5)
[2023-09-12] VITALS (12 sets, daily range): BP systolic 116–132; BP diastolic 75–96; TEMP 98.6–100; O2SAT 94–99
[2023-09-12 06:23] LABS: BASOPHILS % (AUTO) 0.8 % (0.0-2.0); EOSINOPHILS # (AUTO) 0.4 K/uL (0.0-0.7); EOSINOPHILS % (AUTO) 13.5 % (0.0-6.0); HEMATOCRIT 26 % (39-51); HEMOGLOBIN 8.6 g/dL (13.5-17.5); LYMPHOCYTES # (AUTO) 0.9 K/uL (0.8-4.8); LYMPHOCYTES % (AUTO) 33.3 % (20.0-44.0); MEAN CORPUSCULAR HEMOGLOBIN 28 PG (26.0-33.0); MEAN CORPUSCULAR HGB CONC 33 g/dl (31.0-36.0); MEAN CORPUSCULAR VOLUME 85 fL (80-96); MONOCYTES # (AUTO) 0.4 K/uL (0.1-1.30); MONOCYTES % (AUTO) 13.5 % (2.0-12.0); NEUTROPHILS # (AUTO) 1.1 K/uL (1.8-8.9); NEUTROPHILS % (AUTO) 38.9 % (43.0-81.0); PLATELET COUNT (AUTO) 424 K/uL (150-450); RED BLOOD CELL COUNT(AUTO) 3.04 MIL/uL (4.5-6.0); RED CELL DISTRIBUTION WIDTH 15.9 % (11.5-15.0); WHITE BLOOD COUNT (AUTO) 2.7 K/uL (4.3-11.0)
[2023-09-12 06:47] LABS: CALCIUM, SERUM 8.2 mg/dL (8.5-10.1); CARBON DIOXIDE 23 mmol/L (21-32); CHLORIDE 110 mmol/L (98-107); CREATININE 0.5 mg/dL (0.6-1.3); GLUCOSE 82 mg/dL (74-106); POTASSIUM 3.5 mmol/L (3.5-5.1); SODIUM SERUM 142 mmol/L (136-145); UREA NITROGEN, BLOOD 11 mg/dL (7-18)
[2023-09-12] MEDS: METOCLOPRAMIDE HCL 10 MG/2 ML VIAL IV SCH (11:30)
[2023-09-12 20:48] LABS: HEMOGLOBIN 8.8 g/dL (13.5-17.5)
[2023-09-13] VITALS (10 sets, daily range): BP systolic 131–136; BP diastolic 76–91; TEMP 98.1–99.3; O2SAT 93–98
[2023-09-13 07:07] LABS: BASOPHILS % (AUTO) 1.3 % (0.0-2.0); EOSINOPHILS # (AUTO) 0.5 K/uL (0.0-0.7); EOSINOPHILS % (AUTO) 16.9 % (0.0-6.0); HEMATOCRIT 28 % (39-51); HEMOGLOBIN 9.1 g/dL (13.5-17.5); LYMPHOCYTES # (AUTO) 0.8 K/uL (0.8-4.8); MEAN CORPUSCULAR HEMOGLOBIN 28 PG (26.0-33.0); MEAN CORPUSCULAR HGB CONC 33 g/dl (31.0-36.0); MEAN CORPUSCULAR VOLUME 86 fL (80-96); MONOCYTES # (AUTO) 0.4 K/uL (0.1-1.30); MONOCYTES % (AUTO) 13.2 % (2.0-12.0); NEUTROPHILS # (AUTO) 1.1 K/uL (1.8-8.9); NEUTROPHILS % (AUTO) 39.6 % (43.0-81.0); PLATELET COUNT (AUTO) 408 K/uL (150-450); RED BLOOD CELL COUNT(AUTO) 3.22 MIL/uL (4.5-6.0); RED CELL DISTRIBUTION WIDTH 16.2 % (11.5-15.0); WHITE BLOOD COUNT (AUTO) 2.8 K/uL (4.3-11.0)
[2023-09-13 07:20] LABS: CALCIUM, SERUM 7.7 mg/dL (8.5-10.1); CARBON DIOXIDE 24 mmol/L (21-32); CHLORIDE 111 mmol/L (98-107); CREATININE 0.5 mg/dL (0.6-1.3); GLUCOSE 90 mg/dL (74-106); POTASSIUM 3.3 mmol/L (3.5-5.1); SODIUM SERUM 145 mmol/L (136-145); UREA NITROGEN, BLOOD 11 mg/dL (7-18)
[2023-09-13] MEDS ORDERED: POTASSIUM CHLORIDE 20 MEQ POWDER PACKET GT SCH (10:00)
[2023-09-13] MEDS: POTASSIUM CL. PREMIX PERIPHER. 50 ML IV SCH (11:07)
[2023-09-13 20:43] LABS: HEMOGLOBIN 8.8 g/dL (13.5-17.5)
[2023-09-14] VITALS (12 sets, daily range): BP systolic 114–129; BP diastolic 60–66; TEMP 97.7–99.5; O2SAT 93–100
[2023-09-14 07:16] LABS: BASOPHILS % (AUTO) 0.8 % (0.0-2.0); EOSINOPHILS # (AUTO) 0.5 K/uL (0.0-0.7); EOSINOPHILS % (AUTO) 16.2 % (0.0-6.0); HEMATOCRIT 29 % (39-51); HEMOGLOBIN 9.4 g/dL (13.5-17.5); LYMPHOCYTES # (AUTO) 0.9 K/uL (0.8-4.8); LYMPHOCYTES % (AUTO) 29.2 % (20.0-44.0); MEAN CORPUSCULAR HEMOGLOBIN 28 PG (26.0-33.0); MEAN CORPUSCULAR HGB CONC 33 g/dl (31.0-36.0); MEAN CORPUSCULAR VOLUME 87 fL (80-96); MONOCYTES # (AUTO) 0.4 K/uL (0.1-1.30); MONOCYTES % (AUTO) 13.3 % (2.0-12.0); NEUTROPHILS # (AUTO) 1.2 K/uL (1.8-8.9); NEUTROPHILS % (AUTO) 40.5 % (43.0-81.0); PLATELET COUNT (AUTO) 394 K/uL (150-450); RED CELL DISTRIBUTION WIDTH 16.5 % (11.5-15.0); WHITE BLOOD COUNT (AUTO) 2.9 K/uL (4.3-11.0)
[2023-09-14 07:52] LABS: ALANINE AMINOTRANSFERASE 20 U/L (12-78); ALKALINE PHOSPHATASE 67 U/L (46-116); ASPARTATE AMINOTRANSFERASE 16 U/L (15-37); BILIRUBIN,TOTAL 0.5 mg/dL (0.2-1.0); CALCIUM, SERUM 8.4 mg/dL (8.5-10.1); CARBON DIOXIDE 22 mmol/L (21-32); CHLORIDE 111 mmol/L (98-107); CREATININE 0.7 mg/dL (0.6-1.3); GLUCOSE 91 mg/dL (74-106); MAGNESIUM 2.2 mg/dL (1.8-2.4); PHOSPHORUS 2.5 mg/dL (2.5-4.9); POTASSIUM 3.4 mmol/L (3.5-5.1); SODIUM SERUM 143 mmol/L (136-145); TOTAL PROTEIN, SERUM 6.9 g/dL (6.4-8.2); UREA NITROGEN, BLOOD 14 mg/dL (7-18)
[2023-09-14 08:11] LABS: ALBUMIN 1.4 g/dL (3.4-5.0)
[2023-09-14] MEDS: POTASSIUM CL. PREMIX PERIPHER. 50 ML IV SCH (10:06)
[2023-09-14] MEDS: IV D5/ 0.9% NACL 1,000 ML IV PRN (10:44)
[2023-09-14] MEDS: LIDOCAINE 1% INJ 50 ML MDV IJ STA (12:52)
[2023-09-14] MEDS: DAKINS QUARTER STRENGTH (0.125%) 480 ML BOTTLE TOP STA (12:53)
[2023-09-14] MEDS: SILVER NITRATE APPLICATOR 1 EA BOX TP STA (12:53)
[2023-09-14] MEDS: VITAMINS A AND D 56.7 GM TUBE TP SCH (13:31)
[2023-09-14 20:59] LABS: HEMOGLOBIN 8.4 g/dL (13.5-17.5)
[2023-09-15] VITALS (12 sets, daily range): BP systolic 117–150; BP diastolic 64–72; TEMP 97.9–100.4; O2SAT 94–100
[2023-09-15] MEDS: Z GUARD REMEDY 4 OZ OINT TP PRN (03:47)
[2023-09-15 07:13] LABS: BASOPHILS % (AUTO) 0.8 % (0.0-2.0); EOSINOPHILS # (AUTO) 0.6 K/uL (0.0-0.7); EOSINOPHILS % (AUTO) 20.3 % (0.0-6.0); HEMATOCRIT 25 % (39-51); HEMOGLOBIN 8.2 g/dL (13.5-17.5); LYMPHOCYTES % (AUTO) 31.9 % (20.0-44.0); MEAN CORPUSCULAR HEMOGLOBIN 29 PG (26.0-33.0); MEAN CORPUSCULAR HGB CONC 33 g/dl (31.0-36.0); MEAN CORPUSCULAR VOLUME 87 fL (80-96); MONOCYTES # (AUTO) 0.4 K/uL (0.1-1.30); MONOCYTES % (AUTO) 12.3 % (2.0-12.0); NEUTROPHILS # (AUTO) 1.1 K/uL (1.8-8.9); NEUTROPHILS % (AUTO) 34.7 % (43.0-81.0); PLATELET COUNT (AUTO) 341 K/uL (150-450); RED BLOOD CELL COUNT(AUTO) 2.89 MIL/uL (4.5-6.0); RED CELL DISTRIBUTION WIDTH 16.9 % (11.5-15.0)
[2023-09-15 09:23] LABS: ALANINE AMINOTRANSFERASE 17 U/L (12-78); ALKALINE PHOSPHATASE 64 U/L (46-116); ASPARTATE AMINOTRANSFERASE 17 U/L (15-37); BILIRUBIN,TOTAL 0.3 mg/dL (0.2-1.0); CARBON DIOXIDE 21 mmol/L (21-32); CHLORIDE 115 mmol/L (98-107); CREATININE 0.7 mg/dL (0.6-1.3); GLUCOSE 123 mg/dL (74-106); MAGNESIUM 2.1 mg/dL (1.8-2.4); PHOSPHORUS 2.1 mg/dL (2.5-4.9); POTASSIUM 3.2 mmol/L (3.5-5.1); SODIUM SERUM 146 mmol/L (136-145); TOTAL PROTEIN, SERUM 6.6 g/dL (6.4-8.2); UREA NITROGEN, BLOOD 11 mg/dL (7-18)
[2023-09-15 09:27] LABS: ALBUMIN 1.3 g/dL (3.4-5.0)
[2023-09-15] MEDS: LEVOFLOXACIN 250 MG /D5W 50 ML 250 MG in PREMIX 1 EA IV SCH (09:32)
[2023-09-15 09:39] LABS: HEMOGLOBIN 8.1 g/dL (13.5-17.5)
[2023-09-15] MEDS: POTASSIUM CL. PREMIX PERIPHER. 50 ML IV SCH (15:26)
[2023-09-15] MEDS: Sodium Phosphate 15 MMOL in IV NS 0.9% 245 ML IV ONE (16:21)
[2023-09-15 16:37] LABS: D-DIMER 3.19 mg/L(FEU (0.17-0.50); INR 1.3 (0.91-1.10); PARTIAL THROMBOPLASTIN TIME 32.5 SEC (24.3-34.3); PROTHROMBIN TIME 13.5 SECS (9.2-11.1)
[2023-09-15 20:45] LABS: HEMOGLOBIN 8.2 g/dL (13.5-17.5)
[2023-09-15] MEDS: GLYCOPYRROLATE 0.2 MG/ML VIAL IV PRN (21:03)
[2023-09-16] VITALS (12 sets, daily range): BP systolic 117–135; BP diastolic 75–107; TEMP 97.3–99; O2SAT 91–100
[2023-09-16 06:56] LABS: D-DIMER 3.27 mg/L(FEU (0.17-0.50); INR 1.26 (0.91-1.10); PARTIAL THROMBOPLASTIN TIME 30.3 SEC (24.3-34.3); PROTHROMBIN TIME 13.2 SECS (9.2-11.1)
[2023-09-16 08:29] LABS: HEMOGLOBIN 8.7 g/dL (13.5-17.5)
[2023-09-16 09:11] LABS: BASOPHILS % (AUTO) 1.2 % (0.0-2.0); EOSINOPHILS # (AUTO) 0.7 K/uL (0.0-0.7); EOSINOPHILS % (AUTO) 19.7 % (0.0-6.0); HEMATOCRIT 28 % (39-51); HEMOGLOBIN 8.8 g/dL (13.5-17.5); LYMPHOCYTES # (AUTO) 1.1 K/uL (0.8-4.8); LYMPHOCYTES % (AUTO) 31.6 % (20.0-44.0); MEAN CORPUSCULAR HEMOGLOBIN 28 PG (26.0-33.0); MEAN CORPUSCULAR HGB CONC 32 g/dl (31.0-36.0); MEAN CORPUSCULAR VOLUME 88 fL (80-96); MONOCYTES # (AUTO) 0.3 K/uL (0.1-1.30); MONOCYTES % (AUTO) 9.1 % (2.0-12.0); NEUTROPHILS # (AUTO) 1.3 K/uL (1.8-8.9); NEUTROPHILS % (AUTO) 38.4 % (43.0-81.0); PLATELET COUNT (AUTO) 305 K/uL (150-450); RED BLOOD CELL COUNT(AUTO) 3.15 MIL/uL (4.5-6.0); RED CELL DISTRIBUTION WIDTH 16.9 % (11.5-15.0); WHITE BLOOD COUNT (AUTO) 3.4 K/uL (4.3-11.0)
[2023-09-16 10:30] LABS: CREATININE 0.6 mg/dL (0.6-1.3); POTASSIUM 3.3 mmol/L (3.5-5.1)
[2023-09-16 20:33] LABS: HEMOGLOBIN 8.3 g/dL (13.5-17.5)
[2023-09-17] VITALS (13 sets, daily range): BP systolic 121–124; BP diastolic 65; TEMP 97.5–98.6; O2SAT 90–99
[2023-09-17 06:07] LABS: *IFEU ALBUMIN 31.1 % (.); *IFEU ALPHA-1-GLOBULIN 6.9 % (.); *IFEU ALPHA-2-GLOBULIN 7.8 % (.); *IFEU GAMMA GLOBULIN 27.1 % (.); *PEU PROTEIN,TOTAL 99.1 mg/dL (Not Estab.)
[2023-09-17 08:35] LABS: HEMOGLOBIN 8.4 g/dL (13.5-17.5)
[2023-09-17] MEDS ORDERED: IV D5/ 0.9% NACL 1,000 ML IV PRN (09:00)
[2023-09-17] MEDS: MORPHINE SULFATE INJ 2 MG/ML DISP.SYRIN IV PRN (10:40)
[2023-09-17 18:29] LABS: EOSINOPHILS # (AUTO) 0.6 K/uL (0.0-0.7); EOSINOPHILS % (AUTO) 14.8 % (0.0-6.0); HEMATOCRIT 26 % (39-51); HEMOGLOBIN 8.4 g/dL (13.5-17.5); LYMPHOCYTES # (AUTO) 1.2 K/uL (0.8-4.8); MEAN CORPUSCULAR HEMOGLOBIN 28 PG (26.0-33.0); MEAN CORPUSCULAR HGB CONC 32 g/dl (31.0-36.0); MEAN CORPUSCULAR VOLUME 88 fL (80-96); MONOCYTES # (AUTO) 0.4 K/uL (0.1-1.30); MONOCYTES % (AUTO) 9.7 % (2.0-12.0); NEUTROPHILS # (AUTO) 1.8 K/uL (1.8-8.9); NEUTROPHILS % (AUTO) 43.5 % (43.0-81.0); PLATELET COUNT (AUTO) 254 K/uL (150-450); RED BLOOD CELL COUNT(AUTO) 2.96 MIL/uL (4.5-6.0)
[2023-09-17 20:41] LABS: HEMOGLOBIN 8.5 g/dL (13.5-17.5)
[2023-09-17 21:11] LABS: ANISOCYTOSIS 1+; BAND % (MANUAL) 2 % (0.0-5.0); EOSINOPHILS % (MANUAL) 15 % (0-4); LYMPHOCYTES % (MANUAL) 31 % (16-48); MONOCYTES % (MANUAL) 3 % (0-11.0); NEUTROPHILS % (MANUAL) 49 (42-76); PLATELET ESTIMATE ADEQUATE
== END 2023-09-17 19:20 | DRG 673 ==
LOC: ER 11:12 → TELE 13:43 → MED 09-10 17:49
PROVIDERS: ADMIT Internal Medicine; ATTEND Nurse Practitioner Acute Care
PROC: 30233N1 Transfusion of Nonautologous Red Blood Cells into Peripheral Vein, Percutaneous Approach (ICD-10-PCS; 2023-09-10)
PROC: 0KBP0ZZ Excision of Left Hip Muscle, Open Approach (ICD-10-PCS; principal; 2023-09-14)
PROC: 0JBD0ZZ Excision of Right Upper Arm Subcutaneous Tissue and Fascia, Open Approach (ICD-10-PCS; 2023-09-14)
PROC: 0KBN0ZZ Excision of Right Hip Muscle, Open Approach (ICD-10-PCS; 2023-09-14)
PROC: 0KBG0ZZ Excision of Left Trunk Muscle, Open Approach (ICD-10-PCS; 2023-09-14)
PROC: 0KBF0ZZ Excision of Right Trunk Muscle, Open Approach (ICD-10-PCS; 2023-09-14)
DX: N39.0 Urinary tract infection, site not specified (principal); E43 Unspecified severe protein-calorie malnutrition; L89.144 Pressure ulcer of left lower back, stage 4; L89.134 Pressure ulcer of right lower back, stage 4; L89.154 Pressure ulcer of sacral region, stage 4; J96.21 Acute and chronic respiratory failure with hypoxia; L89.214 Pressure ulcer of right hip, stage 4; L89.113 Pressure ulcer of right upper back, stage 3; R53.2 Functional quadriplegia; D61.818 Other pancytopenia; E87.20 Acidosis, unspecified; D68.59 Other primary thrombophilia; K94.23 Gastrostomy malfunction; Z16.24 Resistance to multiple antibiotics; Z16.13 Resistance to carbapenem; F02.818 Dementia in other diseases classified elsewhere, unspecified severity, with other behavioral disturbance; J90 Pleural effusion, not elsewhere classified; K94.22 Gastrostomy infection; L03.311 Cellulitis of abdominal wall; J98.11 Atelectasis; R64 Cachexia; I10 Essential (primary) hypertension; D63.8 Anemia in other chronic diseases classified elsewhere; Z66 Do not resuscitate; Z20.822 Contact with and (suspected) exposure to COVID-19; E78.5 Hyperlipidemia, unspecified; D72.821 Monocytosis (symptomatic); E88.09 Other disorders of plasma-protein metabolism, not elsewhere classified; M24.561 Contracture, right knee; M24.562 Contracture, left knee; L89.629 Pressure ulcer of left heel, unspecified stage; L89.619 Pressure ulcer of right heel, unspecified stage; L89.529 Pressure ulcer of left ankle, unspecified stage; L89.519 Pressure ulcer of right ankle, unspecified stage; R13.10 Dysphagia, unspecified; R62.7 Adult failure to thrive; Z51.5 Encounter for palliative care; Z87.891 Personal history of nicotine dependence; Z87.440 Personal history of urinary (tract) infections; G30.9 Alzheimer's disease, unspecified; F25.9 Schizoaffective disorder, unspecified; M62.50 Muscle wasting and atrophy, not elsewhere classified, unspecified site; N40.0 Benign prostatic hyperplasia without lower urinary tract symptoms; Y83.3 Surgical operation with formation of external stoma as the cause of abnormal reaction of the patient, or of later complication, without mention of misadventure at the time of the procedure; Y82.8 Other medical devices associated with adverse incidents; Y92.129 Unspecified place in nursing home as the place of occurrence of the external cause; Z79.82 Long term (current) use of aspirin; Z79.51 Long term (current) use of inhaled steroids; Z79.899 Other long term (current) drug therapy; Z86.19 Personal history of other infectious and parasitic diseases; S31.31XA Laceration without foreign body of scrotum and testes, initial encounter; X58.XXXA Exposure to other specified factors, initial encounter; Y92.9 Unspecified place or not applicable; L89.116 Pressure-induced deep tissue damage of right upper back; L89.126 Pressure-induced deep tissue damage of left upper back; F09 Unspecified mental disorder due to known physiological condition
CPT/HCPCS: 31720; 36415; 36600; 71045-TC; 76700-TC; 80048-TC; 80053-TC; 80076-TC; 80202-TC; 81001; 82232; 82272-TC; 82607-TC; 82728-TC; 82784; 82803-TC; 82962-TC; 83540-TC; 83605-TC; 83735-TC; 84100-TC; 84155; 84165; 84443-TC; 84484-TC; 85025-TC; 85027-TC; 85396; 85730-TC; 86225; 86235; 86334; 86431-TC; 86706; 86803; 86850-TC; 87040-TC; 87081-TC; 87086-TC; 87340; 87806; 92526; 92611-TC; 94760-TC; 94761-TC; 94762-TC; 94799-TC; A4216; A4223; A6253; A6403; A9563; G0378; J0456; J0692; J0696; J1956; J2270; J2765; J3370; J3371; J3480; J3490; J7040; J7042; J7050; J7060; P9016; P9047

== ENCOUNTER 2023-09-17 22:07 | Inpatient (IN) | payer OTHER ==
[~2023-09-17] VITALS: Ht 152.4 cm; Wt 41.7 kg
[~2023-09-17 22:07] MED LIST changes: +ALLA266C2 TP; -AMIN30LI2 GT; +AMIN30LI66 GT; +COLL30OI TP; -FERR220S2 GT; +FERR325T28 GT; -PIPE3.379 IV; +POVI3780 TP; +SILVER ALGINATE TP
[2023-09-17] MEDS: MORPHINE SULFATE INJ 4 MG/ML DISP.SYRIN IV SCH (23:13)
[2023-09-17 23:39] VITALS: BP 129/76; TEMP 99; O2SAT 96
[2023-09-18] MEDS ORDERED: LORAZEPAM INJ 2 MG/ML VIAL IV SCH (01:00)
== END 2023-09-18 00:58 | DRG 951 ==
LOC: HOSPICE 22:07
PROVIDERS: ADMIT Nurse Practitioner Acute Care; ATTEND Nurse Practitioner Acute Care
DX: Z51.5 Encounter for palliative care (principal); L89.144 Pressure ulcer of left lower back, stage 4; L89.134 Pressure ulcer of right lower back, stage 4; L89.154 Pressure ulcer of sacral region, stage 4; L89.214 Pressure ulcer of right hip, stage 4; L89.113 Pressure ulcer of right upper back, stage 3; E43 Unspecified severe protein-calorie malnutrition; J96.21 Acute and chronic respiratory failure with hypoxia; R53.2 Functional quadriplegia; K94.22 Gastrostomy infection; L03.311 Cellulitis of abdominal wall; D61.818 Other pancytopenia; N39.0 Urinary tract infection, site not specified; J90 Pleural effusion, not elsewhere classified; D68.69 Other thrombophilia; Z16.24 Resistance to multiple antibiotics; F02.818 Dementia in other diseases classified elsewhere, unspecified severity, with other behavioral disturbance; R64 Cachexia; Z68.1 Body mass index [BMI] 19.9 or less, adult; Y83.3 Surgical operation with formation of external stoma as the cause of abnormal reaction of the patient, or of later complication, without mention of misadventure at the time of the procedure; Y82.8 Other medical devices associated with adverse incidents; Y92.129 Unspecified place in nursing home as the place of occurrence of the external cause; E88.09 Other disorders of plasma-protein metabolism, not elsewhere classified; Z74.09 Other reduced mobility; I10 Essential (primary) hypertension; Z66 Do not resuscitate; E78.5 Hyperlipidemia, unspecified; D72.821 Monocytosis (symptomatic); M24.561 Contracture, right knee; M24.562 Contracture, left knee; L89.629 Pressure ulcer of left heel, unspecified stage; L89.619 Pressure ulcer of right heel, unspecified stage; L89.529 Pressure ulcer of left ankle, unspecified stage; L89.519 Pressure ulcer of right ankle, unspecified stage; R13.10 Dysphagia, unspecified; R62.7 Adult failure to thrive; Z87.440 Personal history of urinary (tract) infections
CPT/HCPCS: G0378; J2270